=== PATIENT | female | born 2000 | race Two or more races ===

== ENCOUNTER 2022-12-10 15:35 | Outpatient (AMB) | payer MEDICARE, MEDICAID, SELFPAY ==
[2022-12-10 15:41] VITALS: BP 98/60; PULSE 84; O2SAT 99; BMI 19.6
--- NOTE | 2022-12-10 15:41 | MHC.PC.OV ---
Vital Signs 12/10/22 15:41 Height 5 ft 1 in Weight 104 lb BMI 19.6 BP 98/60 Blood Pressure Location Lt brachial Position Sitting Pulse 84 Pulse Source Pulse Oximeter Pulse Oximetry (%) 99 Oxygen Delivery Method Room Air Intake Visit Reasons: Med Follow up Pension Administrator Required: No Accompanied by: Self / Same As Patient Allergies bee pollen [BEE STINGS] Allergy (Severe, Verified 04/16/23 16:04) SWELLING latex Allergy (Severe, Verified 04/16/23 16:04) rash,hives NSAIDS (Non-Steroidal Anti-Inflamma [NSAIDS (NON-STEROIDAL ANTI-INFLAMMA] Adverse Reaction (Intermediate, Verified 04/16/23 16:04) NOSE BLEEDS R/T BLEEDING DISORDER Medication List - Last Reconciled 12/10/22 by Moncho Florence MD albuterol sulfate 90 mcg/actuation 2 puffs PO Q6H PRN citalopram 20 mg PO DAILY dextroamphetamine-amphetamine 20 mg ER (Adderall XR) 20 mg PO QAM 28 days epinephrine (EpiPen 2-Piotr) 0.3 mg (0.3 mL) IM Q10M PRN melatonin 3 mg PO BEDTIME PRN omeprazole 20 mg PO DAILY 90 days Tobacco use date assessed: 12/10/22 Dental Screening Dental Screen Date: 12/10/22 Did you have a dental visit in the last 12 months?: No Did you have a dental problem in the last 6 months where you did not have access to dental care?: No Was dental information given to patient?: No HPI Med Follow up HPI Details Patient comes in today for her follow up visit States that she has been feeling increasingly depressed lately; adds that her anxiety has also been increasing often recently despite her current medications She denies any headaches or dizziness Denies any chest pains, no shortness of breath - states that her asthma has been well-controlled lately No nausea/ vomiting, no abdominal pain No change in bowel habits noted [facility] Medical History History of palpitations Anxiety Insomnia Attention deficit hyperactivity disorder (ADHD) Allergic rhinitis GERD (gastroesophageal reflux disease) Asthma Surgical History Status post tooth extraction (~04/2019) Family History Father No problems noted. Mother Asthma High cholesterol Other Mental health problem Substance abuse Social History Housing: House Alcohol intake: never Patient Tobacco Use Status: Never used Tobacco e-Cigarette/Vaping Use: Never Used Second Hand Smoke Exposure: No service: No Current occupational status: unemployed Cognitive needs: No Hearing needs: No Vision needs: No Questionnaire PHQ-9 Over the last 2 weeks, how often have you been bothered by any of the following problems? 1. Little interest or pleasure in doing things: not at all 2. Feeling down, depressed, or hopeless: nearly every day 3. Trouble falling or staying asleep, or sleeping too much: nearly every day 4. Feeling tired or having little energy: not at all 5. Poor appetite or overeating: not at all 6. Feeling bad about yourself - or that you are a failure or have let yourself or your family down: not at all 7. Trouble concentrating on things, such as reading the newspaper or watching television: not at all 8. Moving or speaking so slowly that other people could have noticed. Or the opposite - being so fidgety or restless that you have been moving around a lot more than usual: not at all 9. Thoughts that you would be better off or of hurting yourself in some way: not at all Total score: 6 Depression Screening Interpretation: Positive Depression Screening Follow-up: Existing condition and In treatment 30495 - PHQ-9 Billing: Yes Source: Developed by Drs. Geovani Finney, Michelle Gonzalez, Farzad Lazar and colleagues, with an educational tawanna from [employer] Thrive Questionnaire Date Thrive assessed: 12/10/22 I am a: Patient What is your living situation today?: I have a steady place to live Within the past 12 months, did the food you bought not last and you didn't have the money to get more?: Never true Within the past 12 months, did you worry whether your food would run out before you got money to buy more?: Never true Do you have trouble paying for medicines?: No Do you have trouble getting transportation to medical appointments?: No Do you have trouble paying your heating and electricity bill?: No Do you have trouble taking care of your child, family member or friend?: No Do you have trouble with day-to-day activities such as bathing, preparing meals, shopping, managing finances, etc.?: No Are you currently unemployed and looking for a job?: No Are you interested in more education?: No Please select the resources that you would like help with: None Currently or been in a relationship where the following occur: no concerns reported AUDIT C Alcohol Use Questionnaire (AUDIT-C) 1. How often do you have a drink containing alcohol?: Never 3. How often do you have six or more drinks on one occasion?: Never Total Score: 0 Score Reviewed/Action Taken: Yes JERICHO-7 AMB Questionnaire JERICHO-7 Date JERICHO - 7 assessed: 12/10/22 Feeling nervous, anxious, or on edge: 3 = Nearly every day Not being able to stop or control worryin = Nearly every day Worrying too much about different things: 0 = Not at all Trouble relaxin = Not at all Being so restless that it is hard to sit still: 0 = Not at all Becoming easily annoyed or irritable: 0 = Not at all Feeling afraid as if something awful might happen: 0 = Not at all Total JERICHO-7 score (0-4 normal; 5-9 mild; 10-14 moderate; 15-21 severe): 6 Source: Developed by Drs. Geovani Finney, Michelle Gonzalez, Farzad Lazar and colleagues, with an educational tawanna from [employer] Review of Systems Const Denies chills, Denies fatigue, Denies fever(s) and Denies headache(s) ENT Denies dysphagia, Denies dizziness, Denies otalgia, Denies headache(s), Denies odynophagia, Denies sinus pain and Denies sore throat Card Denies chest pain, Denies palpitations and Denies dyspnea Resp Denies cough, Denies dyspnea and Denies wheezing GI Denies abdominal pain, Denies constipation, Denies dysphagia, Denies heartburn, Denies diarrhea, Denies nausea, Denies odynophagia and Denies vomiting Denies nocturia, Denies dysuria and Denies urinary urgency Musc Denies back pain and Denies arthralgias Skin/Breast Denies rash Neuro Denies dizziness and Denies headache(s) Psych Reports anxiety, Reports depression (increased lately) and Reports difficulty concentrating Endo Denies fatigue and Denies palpitations Aller/Immun Denies wheezing Physical exam (Primary Care) Vital Signs: Last Vital Signs Pulse 84 12/10/22 15:41 BP 98/60 12/10/22 15:41 Pulse Ox 99 12/10/22 15:41 Oxygen Delivery Method Room Air 12/10/22 15:41 BMI result Body Mass Index 19.6 Tobacco/Smoking Status: Tobacco use Status Tobacco use date assessed 12/10/22 12/10/22 15:48 Patient Tobacco Use Status Never used Tobacco 12/10/22 15:48 e-Cigarette/Vaping Use Never Used 12/10/22 15:48 PHQ-9: PHQ-9 Score PHQ-9: Total score 6 12/10/22 16:33 Depression Screening Interpretation: Positive Depression Screening Follow-up: Existing condition and In treatment Thrive Assessment: Date of Thrive Assessment Date Thrive assessed 12/10/22 12/10/22 15:48 Currently or been in a relationship where the following occur: no concerns reported Const General: no acute distress and alert HENMT Ears: TM's normal bilaterally and EAC's normal Throat: Yes posterior oropharynx normal and Yes tonsils normal (no TP congestion) Neck Neck: Yes no lymphadenopathy and Yes supple Resp Auscultation: clear to auscultation bilaterally, no rales and no wheezes Cardio Rate: regular rate Rhythm: regular rhythm Heart sounds: no murmurs GI Palpation (GI): Soft to palpation and nontender Auscultation: normal bowel sounds General: Yes no CVA tenderness Back/Spine/Pelvis Back: no CVA tenderness Thoracic/Lumbar Spine: No lumbar spinal tenderness Skin Rashes: no rashes Extrem General: Yes no clubbing, cyanosis or edema Assessment and Plan Assessment & Plan (1) Asthma: Code(s): J45.909 - Unspecified asthma, uncomplicated Qualifiers: Asthma severity: mild Asthma persistence: intermittent Asthma complication type: uncomplicated Qualified Code(s): J45.20 - Mild intermittent asthma, uncomplicated Plan: Stable; patient has not needed to use her inhaler often lately, at most just about 1 to 2 times a week Continue Albuterol HFA 2 inhalations QID PRN (2) GERD (gastroesophageal reflux disease): Code(s): K21.9 - Gastro-esophageal reflux disease without esophagitis Qualifiers: Esophagitis presence: without esophagitis Qualified Code(s): K21.9 - Gastro-esophageal reflux disease without esophagitis Plan: Dietary restrictions reinforced Continue OTC Prilosec 20 mg QD as needed Will send her for some labs BAMBI as she has not had any follow up labs done in a while now (3) Allergic rhinitis: Code(s): J30.9 - Allergic rhinitis, unspecified Qualifiers: Allergic rhinitis trigger: unspecified Allergic rhinitis seasonality: unspecified Qualified Code(s): J30.9 - Allergic rhinitis, unspecified Plan: Continue Cetirizine 10 mg QD PRN (4) Attention deficit hyperactivity disorder (ADHD): Code(s): F90.9 - Attention-deficit hyperactivity disorder, unspecified type Qualifiers: Attention deficit-hyperactivity disorder type: unspecified Qualified Code(s): F90.9 - Attention-deficit hyperactivity disorder, unspecified type Plan: Continue Adderall XR 20 mg Q AM (5) Insomnia: Code(s): G47.00 - Insomnia, unspecified Qualifiers: Insomnia type: unspecified Qualified Code(s): G47.00 - Insomnia, unspecified Plan: Sleep hygiene reinforced - takes OTC Melatonin Q HS PRN (6) Anxiety: Code(s): F41.9 - Anxiety disorder, unspecified Plan: Will increase her Citalopram to 30 mg QD Follow up with psychiatry as scheduled (7) Depression: Code(s): F32.A - Depression, unspecified Qualifiers: Depression Type: major depressive disorder Major depression recurrence: recurrent Active/Remission status: currently active Major depression episode severity: unspecified Qualified Code(s): F33.9 - Major depressive disorder, recurrent, unspecified Plan: Is currently on Citalopram and dose will be increased from 20 mg to 30 mg QD Follow up with psychiatry as scheduled Plan Follow up in 4 months Orders: Orders Complete Blood Count Auto Diff 12/10/22 I10 - Essential (primary) hypertension, J45.909 - Unspecified asthma, uncomplicated, K21.9 - Gastro-esophageal reflux disease without esophagitis, J30.9 - Allergic rhinitis, unspecified UA CC w/rflx Micro + Cult 12/10/22 R30.0 - Dysuria, J45.909 - Unspecified asthma, uncomplicated, K21.9 - Gastro-esophageal reflux disease without esophagitis, J30.9 - Allergic rhinitis, unspecified Comprehensive Met. Panel 12/10/22 J45.909 - Unspecified asthma, uncomplicated, K21.9 - Gastro-esophageal reflux disease without esophagitis, J30.9 - Allergic rhinitis, unspecified TSH reflex Free T4 12/10/22 E78.00 - Pure hypercholesterolemia, unspecified, J45.909 - Unspecified asthma, uncomplicated, K21.9 - Gastro-esophageal reflux disease without esophagitis, J30.9 - Allergic rhinitis, unspecified Vitamin D 25-OH Total 12/10/22 E55.9 - Vitamin D deficiency, unspecified, J45.909 - Unspecified asthma, uncomplicated, K21.9 - Gastro-esophageal reflux disease without esophagitis, J30.9 - Allergic rhinitis, unspecified Cholesterol 12/10/22 J45.909 - Unspecified asthma, uncomplicated, K21.9 - Gastro-esophageal reflux disease without esophagitis, J30.9 - Allergic rhinitis, unspecified Medications: New citalopram 30 mg PO DAILY 30 caps 2RF 30 days Coding Level of Care Code Est Pt Level 4 (52257) Diagnoses Mild intermittent asthma without complication J45.20 Asthma severity: mild Asthma persistence: intermittent Asthma complication type: uncomplicated Gastroesophageal reflux disease without esophagitis K21.9 Esophagitis presence: without esophagitis Allergic rhinitis, unspecified seasonality, unspecified trigger J30.9 Allergic rhinitis trigger: unspecified Allergic rhinitis seasonality: unspecified Attention deficit hyperactivity disorder (ADHD), unspecified ADHD type F90.9 Attention deficit-hyperactivity disorder type: unspecified Insomnia, unspecified type G47.00 Insomnia type: unspecified Anxiety F41.9 Episode of recurrent major depressive disorder, unspecified depression episode severity F33.9 Depression Type: major depressive disorder Major depression recurrence: recurrent Active/Remission status: currently active Major depression episode severity: unspecified
== END 2022-12-10 16:53 | disposition home or self-care (01) ==
PROVIDERS: Visit Provider Internal Medicine
DX: J45.20 Mild intermittent asthma, uncomplicated (principal); K21.9 Gastro-esophageal reflux disease without esophagitis; J30.9 Allergic rhinitis, unspecified; F33.9 Major depressive disorder, recurrent, unspecified; F90.9 Attention-deficit hyperactivity disorder, unspecified type; G47.00 Insomnia, unspecified; F41.9 Anxiety disorder, unspecified
CPT/HCPCS: 99214

== ENCOUNTER 2023-03-08 14:05 | Outpatient (AMB) | payer MEDICARE, MEDICAID, SELFPAY ==
[2023-03-08 14:30] VITALS: BP 102/70; PULSE 78; TEMP 37.4; O2SAT 99; BMI 19.3
--- NOTE | 2023-03-08 14:30 | AM.OFFWIN_ITS ---
Intake Vital Signs 03/08/23 14:30 Height 5 ft 1 in Weight 102 lb BMI 19.3 BP 102/70 Blood Pressure Location Lt brachial Position Sitting Pulse 78 Pulse Source Pulse Oximeter Temp 99.4 F Temp Source Temporal Artery Scan Pulse Oximetry (%) 99 Intake Visit Reasons: EP, cough, congestion, fatigue [phone] Intake Note: pt is here c/o cough, congestion, fatigue, vomitting Patient Tobacco Use Status: Never used Tobacco Allergies bee pollen [BEE STINGS] Allergy (Severe, Verified 03/08/23 14:31) SWELLING latex Allergy (Severe, Verified 03/08/23 14:31) rash,hives NSAIDS (Non-Steroidal Anti-Inflamma [NSAIDS (NON-STEROIDAL ANTI-INFLAMMA] Adverse Reaction (Intermediate, Verified 03/08/23 14:31) NOSE BLEEDS R/T BLEEDING DISORDER Do you need a note to return to daycare/school/sports/work: Yes HPI HPI Comments History of Present Illness Details This is a 22-year-old female who presents to the office today for sick visit. Patient has a history of asthma. Patient complaining of a productive cough and chest congestion x1 month, which has been worsening over the past several days. Patient states she is currently living with her aunt as her parents are homeless. She states that her aunt makes her do a lot of work outside when it is cold out. She denies any fevers or chills. She reports some mild shortness of breath and wheezing. [facility], LAT[facility] Medical History Allergic rhinitis Anxiety Asthma Attention deficit hyperactivity disorder (ADHD) GERD (gastroesophageal reflux disease) History of palpitations Insomnia Surgical History Status post tooth extraction (~04/2019) Family History Father No problems noted. Mother Asthma High cholesterol Other Mental health problem Substance abuse Social History Housing: House Alcohol intake: never Patient Tobacco Use Status: Never used Tobacco e-Cigarette/Vaping Use: Never Used Second Hand Smoke Exposure: No service: No Current occupational status: unemployed Cognitive needs: No Hearing needs: No Vision needs: No Review of Systems Const All systems reviewed & are unremarkable except as noted in HPI and below Reports no additional complaints Eyes Reports no additional complaints ENT Reports no additional complaints Card Reports no additional complaints Resp Reports no additional complaints GI Reports no additional complaints Reports no additional complaints Musc Reports no additional complaints Skin/Breast Reports system reviewed and no additional complaints, except as documented Neuro Reports no additional complaints Psych Reports no additional complaints Endo Reports no additional complaints Samir/Lymph Reports no additional complaints Aller/Immun Reports no additional complaints Physical Exam Const Other: Vital signs reviewed. Constitutional: Non-toxic appearing. No acute distress. Well-developed and well-nourished. HEENT: Normocephalic and atraumatic. Skin: Warm and dry. No rashes or lesions noted. Neck: Full and painless range of motion. No cervical lymphadenopathy. Cardio: Regular rate and rhythm. No murmurs, gallops, or rubs. No lower extremity edema. No JVD. Pulmonary: No respiratory distress. No accessory muscle usage. Frequent deep cough. Scattered expiratory wheezing. Gastrointestinal: Soft, nontender, and nondistended in all 4 quadrants. Normoactive bowel sounds in all 4 quadrants. Genitourinary: No CVA tenderness. Musculoskeletal: Normal range of motion in joints throughout the body. No deformity or other signs of injury. Neuro: Alert and oriented x4. Cranial nerves 2-12 grossly intact. No focal deficits appreciated. Psych: Normal mood and affect. Assessment & Plan Assessment & Plan (1) Mild intermittent acute asthmatic bronchitis with acute exacerbation: Code(s): J45.21 - Mild intermittent asthma with (acute) exacerbation Plan: This is a 22-year-old female with past medical history significant for asthma presents with for reactive cough, chest congestion, shortness of breath, and wheezing. Patient's vital signs are stable and she is maintaining oxygen saturations on room air. She has scattered expiratory wheezing as well as a frequent deep cough on physical examination. History and physical most consistent with an acute asthmatic bronchitis likely secondary to environmental factors .Patient likely has an acute asthma exacerbation in the setting of environmental factors and exposure to cold weather and seasonal changes. I recommend that the patient stay inside when the weather is cold to avoid further asthma exacerbations as she likely has reactive airways causing bronchospasm. Patient was given an albuterol nebulized treatment in the office with improvement in her symptoms. Chest x-ray was obtained to evaluate for evidence of pneumonia. Patient was sent home on p.o. prednisone 40 mg daily x5 days, p.o. azithromycin 500 mg today followed by 250 mg daily x4 days, and PO benzonatate 200 mg 3 times daily as needed for cough. Patient was instructed to follow-up here or proceed to the emergency room if she were to develop persistent/worsening symptoms such as worsening sputum production/purulence, fever/chills, worsening shortness of breath, or hemoptysis. Patient verbalizes her understanding and she is in agreement with the plan. Orders: Orders AMB Nebulizer Treatment Today J45.901 - Unspecified asthma with (acute) exacerbation XR chest 2V Today R05.9 - Cough, unspecified Medications: New albuterol sulfate 2.5 mg (3 mL) inhalation ONCE 3 mL 0RF J45.901 - Unspecified asthma with (acute) exacerbation azithromycin For 250 mg dose pack: take 500 mg today (day 1), then 250 mg for 4 days (days 2-5) PO 6 tabs 0RF prednisone 40 mg (2 x 20 mg) PO DAILY 10 tabs 0RF benzonatate 200 mg PO TID PRN 14 caps 0RF cough Coding Level of Care Code Est Pt Level 3 (35172) Diagnoses Mild intermittent acute asthmatic bronchitis with acute exacerbation J45.21
== END 2023-03-08 16:30 | disposition home or self-care (01) ==
PROVIDERS: PCP Internal Medicine; Visit Provider Physician Assistant Medical
DX: J45.21 Mild intermittent asthma with (acute) exacerbation (principal)
CPT/HCPCS: 99213

== ENCOUNTER 2023-03-08 15:18 | Outpatient (REF) | payer MEDICARE, MEDICAID, SELFPAY ==
--- NOTE | ~2023-03-08 | XR_ITS ---
EXAMINATION: XR CHEST CLINICAL INFORMATION: Cough. COMPARISON: None available. TECHNIQUE: 2 views of the chest were obtained. FINDINGS: The lungs are well expanded. No focal consolidation. No pleural effusion. Cardiac silhouette is within normal limits. XR/XR chest 2V IMPRESSION: No acute abnormality.
== END 2023-03-08 15:19 | disposition home or self-care (01) ==
LOC: HO.HMGCX 15:18
PROVIDERS: Visit Provider Physician Assistant Medical
DX: R05.9 Cough, unspecified (principal)
CPT/HCPCS: 71046

== ENCOUNTER 2023-04-16 14:49 | Outpatient (AMB) | payer MEDICARE, MEDICAID, SELFPAY ==
[2023-04-16 14:58] VITALS: BP 102/76; PULSE 84; O2SAT 96; BMI 20.6
--- NOTE | 2023-04-16 14:58 | A.OFFPC_ITS ---
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 Accompanied by: Self / Same As Patient Allergies bee pollen [BEE STINGS] Allergy (Severe, Verified 04/16/23 16:04) SWELLING latex Allergy (Severe, Verified 04/16/23 16:04) rash,hives NSAIDS (Non-Steroidal Anti-Inflamma [NSAIDS (NON-STEROIDAL ANTI-INFLAMMA] Adverse Reaction (Intermediate, Verified 04/16/23 16:04) NOSE BLEEDS R/T BLEEDING DISORDER Medication List - Last Reconciled 04/16/23 by Moncho Florence MD albuterol sulfate 90 mcg/actuation 2 puffs PO Q6H PRN citalopram 20 mg PO DAILY citalopram 10 mg PO DAILY dextroamphetamine-amphetamine 20 mg ER (Adderall XR) 20 mg PO QAM 28 days epinephrine (EpiPen 2-Piotr) 0.3 mg (0.3 mL) IM Q10M PRN melatonin 3 mg PO BEDTIME PRN [NEBULIZER with MEDIUM MASK and all related supplies As directed] omeprazole 20 mg PO DAILY 90 days Tobacco use date assessed: 12/10/22 Dental Screening Dental Screen Date: 04/16/23 Did you have a dental visit in the last 12 months?: No Did you have a dental problem in the last 6 months where you did not have access to dental care?: No Was dental information given to patient?: No HPI 4 month f/u HPI Details Patient comes in today for her follow up visit States that she feels okay Relates that she came down with a bout of bronchitis a few weeks ago but her symptoms have all since cleared up She presently denies any headaches or dizziness Denies any chest pains, no SOB No nausea/vomiting, no abdominal pain No change in bowel habits noted States that her mom would like for her to be checked for possible diabetes She still has not gotten her previously ordered labs done yet States that she is currently following up with a psychiatrist and her mood disorder has been doing well on Citalopram that she now takes at 30 mg (20 mg + 10 mg tablets) QD and that psychiatry is still not yet taking over her Adderall XR Rx - was reportedly told that she will need to be seen 1 or 2 more time before they will take over PFSH Medical History History of palpitations Anxiety Insomnia Attention deficit hyperactivity disorder (ADHD) Allergic rhinitis GERD (gastroesophageal reflux disease) Asthma Surgical History Status post tooth extraction (~04/2019) Family History Father No problems noted. Mother Asthma High cholesterol Other Mental health problem Substance abuse Social History Housing: House Alcohol intake: never Patient Tobacco Use Status: Never used Tobacco e-Cigarette/Vaping Use: Never Used Second Hand Smoke Exposure: No service: No Current occupational status: unemployed Cognitive needs: No Hearing needs: No Vision needs: No Questionnaire PHQ-9 Over the last 2 weeks, how often have you been bothered by any of the following problems? 1. Little interest or pleasure in doing things: not at all 2. Feeling down, depressed, or hopeless: nearly every day 3. Trouble falling or staying asleep, or sleeping too much: nearly every day 4. Feeling tired or having little energy: not at all 5. Poor appetite or overeating: not at all 6. Feeling bad about yourself - or that you are a failure or have let yourself or your family down: not at all 7. Trouble concentrating on things, such as reading the newspaper or watching television: not at all 8. Moving or speaking so slowly that other people could have noticed. Or the opposite - being so fidgety or restless that you have been moving around a lot more than usual: not at all 9. Thoughts that you would be better off or of hurting yourself in some way: not at all Total score: 6 Depression Screening Interpretation: Positive Depression Screening Follow-up: Existing condition and In treatment Depression Screening Done: Yes 45361 - PHQ-9 Billing: Yes Source: Developed by Drs. Geovani Finney, Michelle B.WFarzad Darling and colleagues, with an educational tawanna from [employer]. Thrive Questionnaire Date Thrive assessed: 04/16/23 I am a: Patient What is your living situation today?: I have a steady place to live Within the past 12 months, did the food you bought not last and you didn't have the money to get more?: Never true Within the past 12 months, did you worry whether your food would run out before you got money to buy more?: Never true Do you have trouble paying for medicines?: No Do you have trouble getting transportation to medical appointments?: No Do you have trouble paying your heating and electricity bill?: No Do you have trouble taking care of your child, family member or friend?: No Do you have trouble with day-to-day activities such as bathing, preparing meals, shopping, managing finances, etc.?: No Are you currently unemployed and looking for a job?: No Are you interested in more education?: No Please select the resources that you would like help with: None Currently or been in a relationship where the following occur: no concerns reported AUDIT C Alcohol Use Questionnaire (AUDIT-C) 1. How often do you have a drink containing alcohol?: Never 3. How often do you have six or more drinks on one occasion?: Never Total Score: 0 Score Reviewed/Action Taken: Yes JERICHO-7 AMB Questionnaire JERICHO-7 Date JERICHO - 7 assessed: 04/16/23 Feeling nervous, anxious, or on edge: 3 = Nearly every day Not being able to stop or control worryin = Nearly every day Worrying too much about different things: 0 = Not at all Trouble relaxin = Not at all Being so restless that it is hard to sit still: 0 = Not at all Becoming easily annoyed or irritable: 0 = Not at all Feeling afraid as if something awful might happen: 0 = Not at all Total JERICOH-7 score (0-4 normal; 5-9 mild; 10-14 moderate; 15-21 severe): 6 Source: Developed by Drs. Geovani Finney, Farzad Greco and colleagues, with an educational tawanna from [email or web address]. Review of Systems Const Denies chills, Denies fatigue, Denies fever(s) and Denies headache(s) ENT Denies dysphagia, Denies dizziness, Denies otalgia, Denies headache(s), Denies odynophagia, Denies sinus pain and Denies sore throat Card Denies chest pain, Denies palpitations and Denies dyspnea Resp Denies cough, Denies dyspnea and Denies wheezing GI Denies abdominal pain, Denies constipation, Denies dysphagia, Denies heartburn, Denies diarrhea, Denies nausea, Denies odynophagia and Denies vomiting Denies nocturia, Denies dysuria and Denies urinary urgency Musc Denies back pain and Denies arthralgias Skin/Breast Denies rash Neuro Denies dizziness and Denies headache(s) Psych Reports depression (increased lately) and Reports difficulty concentrating Endo Denies fatigue and Denies palpitations Aller/Immun Denies wheezing Physical exam (Primary Care) Vital Signs: Last Vital Signs Pulse 84 04/16/23 14:58 BP 102/76 04/16/23 14:58 Pulse Ox 96 04/16/23 14:58 Oxygen Delivery Method Room Air 04/16/23 14:58 BMI result Body Mass Index 20.6 Tobacco/Smoking Status: Tobacco use Status Tobacco use date assessed 12/10/22 04/16/23 14:59 Patient Tobacco Use Status Never used Tobacco 04/16/23 14:59 e-Cigarette/Vaping Use Never Used 04/16/23 14:59 PHQ-9: PHQ-9 Score PHQ-9: Total score 6 04/16/23 15:11 Depression Screening Interpretation: Positive Depression Screening Follow-up: Existing condition and In treatment Thrive Assessment: Date of Thrive Assessment Date Thrive assessed 04/16/23 04/16/23 14:59 Currently or been in a relationship where the following occur: no concerns reported Const General: no acute distress and alert HENMT Ears: TM's normal bilaterally and EAC's normal Throat: Yes posterior oropharynx normal and Yes tonsils normal (no TP con gestion) Neck Neck: Yes no lymphadenopathy and Yes supple Resp Auscultation: clear to auscultation bilaterally, no rales and no wheezes Cardio Rate: regular rate Rhythm: regular rhythm Heart sounds: no murmurs GI Palpation (GI): Soft to palpation and nontender Auscultation: normal bowel sounds General: Yes no CVA tenderness Back/Spine/Pelvis Back: no CVA tenderness Thoracic/Lumbar Spine: No lumbar spinal tenderness Skin Rashes: no rashes Extrem General: Yes no clubbing, cyanosis or edema Assessment and Plan Assessment & Plan (1) Asthma: Code(s): J45.909 - Unspecified asthma, uncomplicated Qualifiers: Asthma severity: mild Asthma persistence: intermittent Asthma complication type: uncomplicated Qualified Code(s): J45.20 - Mild intermittent asthma, uncomplicated Plan: Stable; patient states that she has not needed to use her inhaler often lately - at most just around 1 to 2 times a week Continue Albuterol HFA 2 inhalations QID PRN (2) GERD (gastroesophageal reflux disease): Code(s): K21.9 - Gastro-esophageal reflux disease without esophagitis Qualifiers: Esophagitis presence: without esophagitis Qualified Code(s): K21.9 - Gastro-esophageal reflux disease without esophagitis Plan: Dietary restrictions reinforced Continue OTC Prilosec 20 mg QD as needed She is advised to get her labs done BAMBI and this should also help answer her mother's question whether she should be concerned about diabetes or not (3) Allergic rhinitis: Code(s): J30.9 - Allergic rhinitis, unspecified Qualifiers: Allergic rhinitis trigger: unspecified Allergic rhinitis seasonality: unspecified Qualified Code(s): J30.9 - Allergic rhinitis, unspecified Plan: Continue Cetirizine 10 mg QD PRN (4) Attention deficit hyperactivity disorder (ADHD): Code(s): F90.9 - Attention-deficit hyperactivity disorder, unspecified type Qualifiers: Attention deficit-hyperactivity disorder type: unspecified Qualified Code(s): F90.9 - Attention-deficit hyperactivity disorder, unspecified type Plan: Continue Adderall XR 20 mg Q AM (5) Insomnia: Code(s): G47.00 - Insomnia, unspecified Qualifiers: Insomnia type: unspecified Qualified Code(s): G47.00 - Insomnia, un specified Plan: Sleep hygiene reinforced - takes OTC Melatonin Q HS PRN (6) Anxiety: Code(s): F41.9 - Anxiety disorder, unspecified Plan: Continue Citalopram 30 mg QD Follow up with psychiatry as scheduled Plan To return in 4 months for her next annual physical examination Coding Level of Care Code Est Pt Level 4 (64041) Diagnoses Mild intermittent asthma without complication J45.20 Asthma severity: mild Asthma persistence: intermittent Asthma complication type: uncomplicated Gastroesophageal reflux disease without esophagitis K21.9 Esophagitis presence: without esophagitis Allergic rhinitis, unspecified seasonality, unspecified trigger J30.9 Allergic rhinitis trigger: unspecified Allergic rhinitis seasonality: unspecified Attention deficit hyperactivity disorder (ADHD), unspecified ADHD type F90.9 Attention deficit-hyperactivity disorder type: unspecified Insomnia, unspecified type G47.00 Insomnia type: unspecified Anxiety F41.9
== END 2023-04-16 16:17 | disposition home or self-care (01) ==
PROVIDERS: PCP Internal Medicine; Visit Provider Internal Medicine
DX: J45.20 Mild intermittent asthma, uncomplicated (principal); K21.9 Gastro-esophageal reflux disease without esophagitis; J30.9 Allergic rhinitis, unspecified; F90.9 Attention-deficit hyperactivity disorder, unspecified type; G47.00 Insomnia, unspecified; F41.9 Anxiety disorder, unspecified
CPT/HCPCS: 99214

== ENCOUNTER 2023-05-10 14:25 | Outpatient (AMB) | payer MEDICARE, MEDICAID, SELFPAY ==
--- NOTE | 2023-05-10 14:28 | MHC.PC.OV ---
Vital Signs 05/10/23 14:30 Height 5 ft 1 in Weight 112 lb 6 oz BMI 21.2 BP 110/68 Blood Pressure Location Lt brachial Position Sitting Pulse 88 Pulse Source Pulse Oximeter Pulse Oximetry (%) 97 Oxygen Delivery Method Room Air Intake Visit Reasons: Med Follow up Intake Note: Patient is here to follow up on med review. 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: No Sap Crm Developer: Present Accompanied by: Parent Allergies bee pollen [BEE STINGS] Allergy (Severe, Verified 05/10/23 14:46) SWELLING latex Allergy (Severe, Verified 05/10/23 14:46) rash,hives NSAIDS (Non-Steroidal Anti-Inflamma [NSAIDS (NON-STEROIDAL ANTI-INFLAMMA] Adverse Reaction (Intermediate, Verified 05/10/23 14:46) NOSE BLEEDS R/T BLEEDING DISORDER Medication List - Last Reconciled 05/10/23 by Moncho Florence MD albuterol sulfate 90 mcg/actuation 2 puffs PO Q6H PRN cetirizine 10 mg PO DAILY PRN citalopram 20 mg PO DAILY citalopram 10 mg PO DAILY dextroamphetamine-amphetamine 20 mg ER (Adderall XR) 20 mg PO QAM 28 days epinephrine (EpiPen 2-Piotr) 0.3 mg (0.3 mL) IM Q10M PRN melatonin 3 mg PO BEDTIME PRN [NEBULIZER with MEDIUM MASK and all related supplies As directed] omeprazole 20 mg PO DAILY 90 days Tobacco use date assessed: 05/10/23 Dental Screening Dental Screen Date: 05/10/23 Did you have a dental visit in the last 12 months?: No Did you have a dental problem in the last 6 months where you did not have access to dental care?: No Was dental information given to patient?: No HPI Med Follow up HPI Details Patient comes in today for her follow up visit States that she feel okay She denies any headaches or dizziness Denies any chest pains, no SOB No nausea/vomiting, no abdominal pain No change in bowel habits noted Patient STILL has NOT YET gotten her non-fasting labs done despite repeat attempts and reminders for her to get them done BAMBI Adds that she needs her Albuterol inhaler Rx refilled again PFSH Medical History History of palpitations Anxiety Insomnia Attention deficit hyperactivity disorder (ADHD) Allergic rhinitis GERD (gastroesophageal reflux disease) Asthma Surgical History Status post tooth extraction (~04/2019) Family History Father No problems noted. Mother Asthma High cholesterol Other Mental health problem Substance abuse Social History Housing: House Alcohol intake: never Patient Tobacco Use Status: Never used Tobacco e-Cigarette/Vaping Use: Never Used Second Hand Smoke Exposure: No service: No Current occupational status: unemployed Cognitive needs: No Hearing needs: No Vision needs: No Questionnaire PHQ-9 Over the last 2 weeks, how often have you been bothered by any of the following problems? 1. Little interest or pleasure in doing things: nearly every day 2. Feeling down, depressed, or hopeless: nearly every day 3. Trouble falling or staying asleep, or sleeping too much: nearly every day 4. Feeling tired or having little energy: nearly every day 5. Poor appetite or overeating: nearly every day 6. Feeling bad about yourself - or that you are a failure or have let yourself or your family down: several days 7. Trouble concentrating on things, such as reading the newspaper or watching television: more than half the days 8. Moving or speaking so slowly that other people could have noticed. Or the opposite - being so fidgety or restless that you have been moving around a lot more than usual: not at all 9. Thoughts that you would be better off or of hurting yourself in some way: several days Total score: 19 Depression Screening Interpretation: Positive Depression Screening Follow-up: Existing condition and In treatment Depression Screening Done: Yes 71927 - PHQ-9 Billing: Yes Source: Developed by Drs. Geovani Finney, Michelle Gonzalez, Farzad Lazar and colleagues, with an educational tawanna from [email or web address]. Thrive Questionnaire Date Thrive assessed: 05/10/23 I am a: Patient What is your living situation today?: I have a steady place to live Within the past 12 months, did the food you bought not last and you didn't have the money to get more?: Never true Within the past 12 months, did you worry whether your food would run out before you got money to buy more?: Never true Do you have trouble paying for medicines?: No Do you have trouble getting transportation to medical appointments?: No Do you have trouble paying your heating and electricity bill?: No Do you have trouble taking care of your child, family member or friend?: No Do you have trouble with day-to-day activities such as bathing, preparing meals, shopping, managing finances, etc.?: No Are you currently unemployed and looking for a job?: No Are you interested in more education?: No Currently or been in a relationship where the following occur: no concerns reported THRIVE Score: 0 AUDIT C Alcohol Use Questionnaire (AUDIT-C) 1. How often do you have a drink containing alcohol?: Never Total Score: 0 Score Reviewed/Action Taken: Yes JERICHO-7 AMB Questionnaire JERICHO-7 Date JERICHO - 7 assessed: 05/10/23 Feeling nervous, anxious, or on edge: 3 = Nearly every day Not being able to stop or control worryin = Several days Worrying too much about different things: 1 = Several days Trouble relaxin = Nearly every day Being so restless that it is hard to sit still: 1 = Several days Becoming easily annoyed or irritable: 3 = Nearly every day Feeling afraid as if something awful might happen: 0 = Not at all Total JERICHO-7 score (0-4 normal; 5-9 mild; 10-14 moderate; 15-21 severe): 12 Source: Developed by Drs. Geovani Finney, Michelle Gonzalez, Farzad Lazar and colleagues, with an educational tawanna from [email or web address]. Review of Systems Const Denies chills, Denies fatigue, Denies fever(s) and Denies headache(s) ENT Denies dysphagia, Denies dizziness, Denies otalgia, Denies headache(s), Denies odynophagia and Denies sore throat Card Denies chest pain, Denies palpitations and Denies dyspnea Resp Denies cough, Denies dyspnea and Denies wheezing GI Denies abdominal pain, Denies constipation, Denies dysphagia, Denies heartburn, Denies diarrhea, Denies nausea, Denies odynophagia and Denies vomiting Denies nocturia, Denies dysuria and Denies urinary urgency Musc Denies back pain and Denies arthralgias Skin/Breast Denies rash Neuro Denies dizziness and Denies headache(s) Psych Reports depression and Reports difficulty concentrating Endo Denies fatigue and Denies palpitations Aller/Immun Denies wheezing Physical exam (Primary Care) Vital Signs: Last Vital Signs Pulse 88 05/10/23 14:30 BP 110/68 05/10/23 14:30 Pulse Ox 97 05/10/23 14:30 Oxygen Delivery Method Room Air 05/10/23 14:30 BMI result Body Mass Index 21.2 Tobacco/Smoking Status: Tobacco use Status Tobacco use date assessed 05/10/23 05/10/23 14:33 Patient Tobacco Use Status Never used Tobacco 05/10/23 14:33 e-Cigarette/Vaping Use Never Used 05/10/23 14:33 PHQ-9: PHQ-9 Score PHQ-9: Total score 05/10/23 14:39 Depression Screening Interpretation: Positive Depression Screening Follow-up: Existing condition and In treatment Thrive Assessment: Date of Thrive Assessment Date Thrive assessed 05/10/23 05/10/23 14:33 Currently or been in a relationship where the following occur: no concerns reported Const General: no acute distress and alert HENMT Ears: TM's normal bilaterally and EAC's normal Throat: Yes posterior oropharynx normal and Yes tonsils normal (no TP congestion) Neck Neck: Yes no lymphadenopathy and Yes supple Resp Auscultation: clear to auscultation bilaterally, no rales and no wheezes Cardio Rate: regular rate Rhythm: regular rhythm Heart sounds: no murmurs GI Palpation (GI): Soft to palpation and nontender Auscultation: normal bowel sounds General: Yes no CVA tenderness Back/Spine/Pelvis Back: no CVA tenderness Thoracic/Lumbar Spine: No lumbar spinal tenderness Skin Rashes: no rashes Extrem General: Yes no clubbing, cyanosis or edema Assessment and Plan Assessment & Plan (1) Asthma: Code(s): J45.909 - Unspecified asthma, uncomplicated Qualifiers: Asthma severity: mild Asthma persistence: intermittent Asthma complication type: uncomplicated Qualified Code(s): J45.20 - Mild intermittent asthma, uncomplicated Plan: Stable again lately Continue Albuterol HFA 2 inhalations QID PRN - Rx refilled (2) GERD (gastroesophageal reflux disease): Code(s): K21.9 - Gastro-esophageal reflux disease without esophagitis Qualifiers: Esophagitis presence: without esophagitis Qualified Code(s): K21.9 - Gastro-esophageal reflux disease without esophagitis Plan: Dietary restrictions reinforced Continue OTC Prilosec 20 mg QD as needed She is advised to get her labs done BAMBI as these are long overdue - orders are again printed out for patient and she states that she will try to get these done tomorrow (3) Allergic rhinitis: Code(s): J30.9 - Allergic rhinitis, unspecified Qualifiers: Allergic rhinitis trigger: unspecified Allergic rhinitis seasonality: unspecified Qualified Code(s): J30.9 - Allergic rhinitis, unspecified Plan: Continue Cetirizine 10 mg QD PRN (4) Attention deficit hyperactivity disorder (ADHD): Code(s): F90.9 - Attention-deficit hyperactivity disorder, unspecified type Qualifiers: Attention deficit-hyperactivity disorder type: unspecified Qualified Code(s): F90.9 - Attention-deficit hyperactivity disorder, unspecified type Plan: Continue Adderall XR 20 mg Q AM (5) Insomnia: Code(s): G47.00 - Insomnia, unspecified Qualifiers: Insomnia type: unspecified Qualified Code(s): G47.00 - Insomnia, unspecified Plan: Sleep hygiene reinforced - takes OTC Melatonin Q HS PRN (6) Anxiety: Code(s): F41.9 - Anxiety disorder, unspecified Plan: Continue Citalopram 30 mg QD Follow up with psychiatry as scheduled Plan To return as scheduled in July 2023 for her annual physical examination Medications: Refilled albuterol sulfate 90 mcg/actuation 2 puffs PO Q6H PRN 18 ea 3RF for wheezing J45.20 - Mild intermittent asthma, uncomplicated Coding Level of Care Code Est Pt Level 3 (76689) Diagnoses Mild intermittent asthma without complication J45.20 Asthma severity: mild Asthma persistence: intermittent Asthma complication type: uncomplicated Gastroesophageal reflux disease without esophagitis K21.9 Esophagitis presence: without esophagitis Allergic rhinitis, unspecified seasonality, unspecified trigger J30.9 Allergic rhinitis trigger: unspecified Allergic rhinitis seasonality: unspecified Attention deficit hyperactivity disorder (ADHD), unspecified ADHD type F90.9 Attention deficit-hyperactivity disorder type: unspecified Insomnia, unspecified type G47.00 Insomnia type: unspecified Anxiety F41.9
[2023-05-10 14:30] VITALS: BP 110/68; PULSE 88; O2SAT 97; BMI 21.2
== END 2023-05-10 15:01 | disposition home or self-care (01) ==
PROVIDERS: PCP Internal Medicine; Visit Provider Internal Medicine
DX: J45.20 Mild intermittent asthma, uncomplicated (principal); K21.9 Gastro-esophageal reflux disease without esophagitis; J30.9 Allergic rhinitis, unspecified; F90.9 Attention-deficit hyperactivity disorder, unspecified type; G47.00 Insomnia, unspecified; F41.9 Anxiety disorder, unspecified
CPT/HCPCS: 99213

== ENCOUNTER 2023-05-28 15:32 | Outpatient (REF) | payer MEDICARE, MEDICAID, SELFPAY ==
[2023-05-28 15:44] LABS: MANUAL DIFF FLAG NO
[2023-05-28 17:10] LABS: Basophils Absolute Auto 0.1 X10*3/uL (0.0-0.2); Basophils Percent Auto 1.2 % (0-2); Eosinophils Absolute Auto 0.2 X10*3/uL (0.0-0.4); Eosinophils Percent Auto 3.9 % (0-4); Hematocrit 45.3 % (37.0-47.0); Hemoglobin 15.2 g/dl (12.0-16.0); Imm Gran Abs Auto 0.02 X10*3/uL (0.00-0.03); Imm Gran Pct Auto 0.3 % (0.0-0.4); Lymphocytes Absolute Auto 2.2 X10*3/uL (1.2-4.9); Lymphocytes Percent Auto 37.7 % (20-40); Mean Corpuscular HGB Conc 33.6 g/dl (31.0-35.0); Mean Corpuscular Hemoglobin 30.3 pg (27.0-33.0); Mean Corpuscular Volume 90.4 fL (80.0-98.0); Mean Platelet Volume 10.6 fL (9.4-12.3); Monocytes Absolute Auto 0.5 X10*3/uL (0.1-1.2); Monocytes Percent Auto 8.7 % (2-11); Neutrophils Absolute Auto 2.8 x10*3/uL (2.0-8.3); Neutrophils Percent Auto 48.2 % (45-73); Platelet Count 364 X10*3/uL (160-400); Red Blood Count 5.01 X10*6/uL (4.20-5.50); Red Cell Distribution Width 12.5 % (11.0-16.0); White Blood Count 5.9 X10*3/uL (4.8-10.8)
[2023-05-28 17:38] LABS: Alanine Aminotransferase 11 U/L (0-31); Albumin Level 4.4 g/dL (3.5-5.0); Alkaline Phosphatase 74 U/L (39-117); Anion Gap 11 (12-20); Aspartate Amino Transferase 15 U/L (5-31); Bilirubin Total 0.6 mg/dL (0.0-1.0); Blood Urea Nitrogen 8 mg/dL (9-16); Calcium 9.7 mg/dL (8.4-10.2); Carbon Dioxide 29 mmol/L (22-29); Chloride 102 mmol/L (96-108); Cholesterol 162 mg/dL (<200); Estimated Glomerular Filt Rate > 60; Glucose Random 88 mg/dL (60-115); Potassium 3.3 mmol/L (3.3-5.1); Sodium 139 mmol/L (135-145); Total Protein 7.2 g/dL (6.5-8.0)
[2023-05-28 17:56] LABS: TSH reflex Free T4 1.75 uIU/mL (0.32-4.0); Vitamin D 25-OH Total 31.5 ng/mL (>30)
== END 2023-05-28 15:33 | disposition home or self-care (01) ==
LOC: HO.LAB 15:32
PROVIDERS: PCP Internal Medicine; Visit Provider Internal Medicine
DX: J45.909 Unspecified asthma, uncomplicated (principal); K21.9 Gastro-esophageal reflux disease without esophagitis; E78.00 Pure hypercholesterolemia, unspecified; E55.9 Vitamin D deficiency, unspecified
CPT/HCPCS: 36415; 80053; 82306; 82465; 84443; 85025

== ENCOUNTER 2023-05-29 15:54 | Outpatient (REF) | payer MEDICARE, MEDICAID, SELFPAY ==
[2023-05-29 17:34] LABS: Appearance Urine Turbid; Color Urine Yellow; Glucose Urine UA Negative (Negative); Leukocyte Esterase Urine Negative (Negative); Nitrite Urine Negative (Negative); PH >= 9.0 (5.0-9.0); Urine Blood Negative (Negative); Urine Ketones Negative (Negative); Urine Protein Trace mg/dL (Neg-Trace)
== END 2023-05-29 15:55 | disposition home or self-care (01) ==
LOC: HO.LAB 15:54
PROVIDERS: PCP Internal Medicine; Visit Provider Internal Medicine
DX: R30.0 Dysuria (principal); J45.909 Unspecified asthma, uncomplicated; K21.9 Gastro-esophageal reflux disease without esophagitis
CPT/HCPCS: 81003

== ENCOUNTER 2024-01-10 15:57 | Outpatient (AMB) | payer MEDICARE, MEDICAID, SELFPAY ==
[2024-01-10 16:32] VITALS: BP 122/62; PULSE 103; O2SAT 96; BMI 19.3
--- NOTE | 2024-01-10 16:34 | AM.OFFVISMDC ---
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 Required: No Accompanied by: Self / Same As Patient Allergies bee pollen [BEE STINGS] Allergy (Severe, Verified 01/10/24 16:59) SWELLING latex Allergy (Severe, Verified 01/10/24 16:59) rash,hives NSAIDS (Non-Steroidal Anti-Inflamma [NSAIDS (NON-STEROIDAL ANTI-INFLAMMA] Adverse Reaction (Intermediate, Verified 01/10/24 16:59) NOSE BLEEDS R/T BLEEDING DISORDER Medication List - Last Reconciled 01/10/24 by Moncho Florence MD albuterol sulfate 90 mcg/actuation 2 puffs PO Q6H PRN cetirizine 10 mg PO DAILY PRN citalopram 10 mg PO DAILY citalopram 20 mg PO DAILY dextroamphetamine-amphetamine 20 mg ER (Adderall XR) 20 mg PO QAM 28 days epinephrine (EpiPen 2-Piotr) 0.3 mg (0.3 mL) IM Q10M PRN melatonin 3 mg PO BEDTIME PRN [NEBULIZER with MEDIUM MASK and all related supplies As directed] omeprazole 20 mg PO DAILY 90 days Do you need a note to return to daycare/school/sports/work: No HPI AWV HPI Details Patient comes in today for her Medicare Annual Wellness Exam States that she currently feels okay but have a couple of potential concerns that she would like to bring uo Relates that she fainted/passed out briefly in her own living room about 2 weeks ago States that she later came to on her own and recalls feeling a lot better promptly when she got something to drink Recalls now that she did not eat that whole day so her symptoms then were likely due to hypoglycemia States that she has not had any recurrence of this since Adds that she has a lump under her chin that has been present there for a while now but notes that it feels painful to touch recently States that the lump has not really gotten any bigger than before She denies any recent sore throat or any acute issues in her mouth, teeth or gums lately She denies any fever; denies any headaches or dizziness Denies any chest pains, no increased SOB No nausea/vomiting, no abdominal pain No change in bowel habits noted She had her labs done earlier this year [place] of care was reviewed and updated today Patient has a healthcare proxy but we do not have it on file - have advised her to provide office with a copy BAMBI IPPE/AWV: c/o of Annual Wellness Visit, initial visit. Medical / Social History Reviewed Past Medical History Yes . [place] of Care / Care Team list updated Yes . Surgical/Hospitalization History Yes . Current Medications (including OTC and supplements) Yes . Family History Yes . Tobacco Control form Yes . AUDIT-C (Alcohol use) form Yes . Illicit drug use in Social History Yes . Current diagnosis of depression? No Appropriate PHQ2/PHQ9 completed Yes . Data entered by Digital Media Coordinator and reviewed by provider Home Safety Throw rugs? No Grab bars? No Raised toilet seats? No Working smoke detectors? Yes Working carbon monoxide detectors? Yes Data entered by Digital Media Coordinator and reviewed by provider Activities of Daily Living (ADLs) Difficulty bathing or showering? No Difficulty dressing? No Difficulty using the toilet? No Difficulty getting in and out of bed? No Difficulty walking? No Receives help from another person with any of the above tasks? No Instrumental Activities of Daily Living (IADLs) Uses the telephone without help Gets to places out of walking distance with help Goes shopping for groceries with help Prepares own meals with help Does own minor home maintenance with help Does own laundry with help Does own housework with help Manages own money with help Currently takes medications? Yes Takes medication without help End-of-Life Planning Discussed advance directive Yes Advance directive on file Discussed wishes expressed in advance directive agreed to following patient's wishes Fall Risk: Fall History Have you had any falls with injury in the past year? No . Have you had two or more falls in the past year? No . Fall Risk Assessment: No falls in the past year . HRA filled out by the patient, reviewed by Provider and scanned. [facility] Medical History History of palpitations Anxiety Insomnia Attention deficit hyperactivity disorder (ADHD) Allergic rhinitis GERD (gastroesophageal reflux disease) Asthma Surgical History Status post tooth extraction (~04/2019) Family History Father No problems noted. Mother Asthma High cholesterol Other Mental health problem Substance abuse Social History Housing: House Alcohol intake: never Patient Tobacco Use Status: Never used Tobacco e-Cigarette/Vaping Use: Never Used Second Hand Smoke Exposure: No service: No Current occupational status: unemployed Cognitive needs: No Hearing needs: No Vision needs: No Questionnaire Medicare Wellness Checkup What gender do you identify with?: female During the past 4 weeks, how much have you been bothered by emotional problems such as feeling anxious, depressed, irritable, sad or downhearted, and blue?: extremely During the past 4 weeks, has your physical & emotional health limited your social activities with family, friends, neighbors, or groups?: quite a bit During the past 4 weeks, how much bodily pain have you generally had?: moderate pain During the past 4 weeks, was someone available to help you if you needed & wanted help?: yes, as much as I wanted During the past 4 weeks, what was the hardest physical activity you could do for at least 2 minutes?: very light Can you get to places out of walking distance without help? (For eg., can you travel alone on buses, taxis or drive your car?): No Can you go shopping for groceries or clothes without someone's help?: No Can you prepare your own meals?: Yes (sometimes) Can you do your housework without help?: Yes (light house work) Because of any health problems, do you need the help of another person with your personal care needs such as eating, bathing, dressing or getting around the house?: No Can you handle your own money without help?: No During the past 4 weeks, how would you rate your health in general?: poor During the past 4 weeks how have things been going for you?: pretty bad Are you having difficulties driving your car?: not applicable, I don't use a car Do you always fasten your seat belt when you are in a car?: yes, usually During past 4 weeks, have you been bothered by the following: never: Problems using the telephone?, seldom: Teeth or denture problems?, sometimes: Falling or dizzy when standing up and Trouble eating well? and often: Tiredness or fatigue? Have you fallen 2 or more times in the past year?: Yes Are you afraid of falling?: No Are you a smoker?: no During the past 4 weeks, how many drinks of wine, beer, or other alcoholic beverages did you have?: no alcohol at all Do you exercise for about 20 minutes 3 or more times a week?: no, I usually do not exercise this much Have you been given information to help with the following?: no: Hazards in your house that might hurt you? and no: Keeping track of your medications? How often do you have trouble taking medicines the way you have been told to take them?: I always take medicine as prescribed How confident are you that you can control & manage most of your health problems?: somewhat confident What is your race?: Other Mini Mental State Exam (MMSE) Orientation What is the (year) (season) (date) (day) (month)?: year, season, date, day and month Where are we (state) (county) (town or city) (hospital) (floor)?: state, town or city, hospital/clinic and floor Score Score: 9 Activity of Daily Living Bathing - sponge bath, tub bath or shower: receives no assistance (gets in/out by self, if usual bathing means Dressing - getting clothes from closets & drawers, including inner/outer garments & fasteners.: gets clothes & gets completely dressed without help Toileting - going to the 'toilet room' for urine/bowel elimination & cleaning self/arranging clothes: goes to toilet room, cleans self, arranges clothes without help Transfer: moves in & out of bed and chair without help (may use support object) Continence: controls urination/bowel movements completely by self Feeding: feeds self without help Total Score: 0 Information obtained from: patient Using telephone: independent Traveling: needs assistance Shopping: needs assistance Preparing meals: needs assistance (sometimes) Housework: needs assistance (can do only very light housework) Taking medicine: independent Managing money: needs assistance (sometimes) PHQ-9 Over the last 2 weeks, how often have you been bothered by any of the following problems? 1. Little interest or pleasure in doing things: not at all 2. Feeling down, depressed, or hopeless: nearly every day 3. Trouble falling or staying asleep, or sleeping too much: nearly every day 4. Feeling tired or having little energy: nearly every day 5. Poor appetite or overeating: nearly every day 6. Feeling bad about yourself - or that you are a failure or have let yourself or your family down: several days 7. Trouble concentrating on things, such as reading the newspaper or watching television: not at all 8. Moving or speaking so slowly that other people could have noticed. Or the opposite - being so fidgety or restless that you have been moving around a lot more than usual: more than half the days 9. Thoughts that you would be better off or of hurting yourself in some way: several days Total score: 16 Depression Screening Interpretation: Positive Depression Screening Follow-up: Existing condition and In treatment Depression Screening Done: Yes 07508 - PHQ-9 Billing: Yes Source: Developed by Drs. Geovani Finney, Michelle Gonzalez, Farzad Lazar and colleagues, with an educational tawanna from [employer]. PHQ-2/PHQ-9 PHQ-2 Over the last 2 weeks, how often have you been bothered by any of the following problems? 1. Little interest or pleasure in doing things: not at all 2. Feeling down, depressed, or hopeless: nearly every day Total score: 3 If score is 3 or greater, continue 3. Trouble falling or staying asleep, or sleeping too much: nearly every day 4. Feeling tired or having little energy: nearly every day 5. Poor appetite or overeating: nearly every day 6. Feeling bad about yourself - or that you are a failure or have let yourself or your family down: several days 7. Trouble concentrating on things, such as reading the newspaper or watching television: not at all 8. Moving or speaking so slowly that other people could have noticed. Or the opposite - being so fidgety or restless that you have been moving around a lot more than usual: more than half the days 9. Thoughts that you would be better off or of hurting yourself in some way: several days Total score: 16 0-4 None-Minimal, 5-9 Mild, 10-14 Moderate, 15-19 Moderately Severe, 20-27 Severe Source: Developed by Drs. Geovani Finney, Michelle Gonzalez, Farzad Lazar and colleagues, with an educational tawanna from [employer]. Thrive Questionnaire Date Thrive assessed: 01/10/24 I am a: Patient What is your living situation today?: I have a steady place to live Within the past 12 months, did the food you bought not last and you didn't have the money to get more?: Never true Within the past 12 months, did you worry whether your food would run out before you got money to buy more?: Never true Do you have trouble paying for medicines?: No Do you have trouble getting transportation to medical appointments?: No Do you have trouble paying your heating and electricity bill?: No Do you have trouble taking care of your child, family member or friend?: No Do you have trouble with day-to-day activities such as bathing, preparing meals, shopping, managing finances, etc.?: No Are you currently unemployed and looking for a job?: Yes Are you interested in more education?: No Please select the resources that you would like help with: None Currently or been in a relationship where the following occur: No concerns reported THRIVE Score: 0 JERICHO-7 AMB Questionnaire JERICHO-7 Date JERICHO - 7 assessed: 01/10/24 Feeling nervous, anxious, or on edge: 3 = Nearly every day Not being able to stop or control worryin = Several days Worrying too much about different things: 1 = Several days Trouble relaxin = Nearly every day Being so restless that it is hard to sit still: 1 = Several days Becoming easily annoyed or irritable: 3 = Nearly every day Feeling afraid as if something awful might happen: 0 = Not at all Total JERICHO-7 score (0-4 normal; 5-9 mild; 10-14 moderate; 15-21 severe): 12 Source: Developed by Drs. Geovani Finney, Michelle Gonzalez, Farzad Lazar and colleagues, with an educational tawanna from [employer]. Review of Systems Const Denies chills, Denies fatigue, Denies fever(s) and Denies headache(s) ENT Denies dysphagia, Denies dizziness, Denies otalgia, Denies headache(s), Denies odynophagia and Denies sore throat Card Denies chest pain, Denies palpitations and Denies dyspnea Resp Denies cough, Denies dyspnea and Denies wheezing GI Denies abdominal pain, Denies constipation, Denies dysphagia, Denies heartburn, Denies diarrhea, Denies nausea, Denies odynophagia and Denies vomiting Denies nocturia, Denies dysuria and Denies urinary urgency Musc Denies back pain and Denies arthralgias Skin/Breast Details: (+) nodule under chin / over anterior neck - see HPI for details Denies rash Neuro Denies dizziness and Denies headache(s) Psych Reports depression and Reports difficulty concentrating Endo Denies fatigue and Denies palpitations Aller/Immun Denies wheezing Physical Exam Vital Signs: Last Vital Signs Pulse 103 H 01/10/24 16:32 BP 122/62 01/10/24 16:32 Pulse Ox 96 01/10/24 16:32 Oxygen Delivery Method Room Air 01/10/24 16:32 BMI result Body Mass Index 19.3 IPPE/AWV: Balance Romberg Yes . Tandem walk Yes . Walk and Turn Yes . Rise from sit to stand Yes . Vision Corrective lens No Vision screen pass Hearing Whisper test pass . Urinary incont. no. EKG Not clinically necessary. Const General: no acute distress and alert HEENT Ears: TM's normal bilaterally and EAC's normal Throat: Yes posterior oropharynx normal and Yes tonsils normal Neck Other: (+) palpable midline nodular lesion(s) over the submental area of the neck Neck: Yes supple Thyroid: Thyroid normal Resp Auscultation: clear to auscultation bilaterally, no crackles and no rales Cardio Rate: regular rate Rhythm: regular rhythm Heart sounds: no murmurs GI Palpation (GI): Soft to palpation and nontender Auscultation: normal bowel sounds General: Yes no CVA tenderness Back/Spine/Pelvis Back: no CVA tenderness Skin Rashes: no rashes Extrem General: Yes no clubbing, cyanosis or edema Results Reviewed Results Reviewed: Laboratory Tests 05/28/23 05/29/23 15:42 17:23 WBC 5.9 Hgb 15.2 Hct 45.3 Plt Count 364 Sodium 139 Potassium 3.3 Creatinine 0.79 Estimated GFR > 60 Random Glucose 88 Calcium 9.7 AST 15 ALT 11 Total Protein 7.2 Albumin 4.4 Cholesterol 162 25-OH Vitamin D Total 31.5 TSH 1.75 Urine pH >= 9.0 Ur Specific [place] 1.020 Urine Protein Trace Urine Glucose (UA) Negative Urine Blood Negative Urine Nitrite Negative Ur Leukocyte Esterase Negative Assessment & Plan Assessment & Plan (1) Medicare annual wellness visit, initial: Code(s): Z00.00 - Encounter for general adult medical examination without abnormal findings Plan: KAVITHA updated HRA form discussed and completed with patient; form will be scanned into patient's chart (2) Nodule of neck: Code(s): R22.1 - Localized swelling, mass and lump, neck Plan: Nodule(s) primarily over the midline submental area Will send patient for soft tissue US of the area for further evaluation (3) Asthma: Code(s): J45.909 - Unspecified asthma, uncomplicated Qualifiers: Asthma severity: mild Asthma persistence: intermittent Asthma complication type: uncomplicated Qualified Code(s): J45.20 - Mild intermittent asthma, uncomplicated Plan: Asthma appears stable - patient states that she hardly has to use her inhaler and at most, just 1 to 2 times a week Continue Albuterol HFA 2 inhalations Q 6 hours PRN (4) History of palpitations: Code(s): Z87.898 - Personal history of other specified conditions Plan: She has been seen and evaluated by pediatric cardiology last year and had echocardiogram done in the office due to an abnormal EKG (right axis deviation) - echocardiogram came back NORMAL with no valvular pathologies She was advised to just follow up with cardiology on an as-needed basis (5) GERD (gastroesophageal reflux disease): Code(s): K21.9 - Gastro-esophageal reflux disease without esophagitis Qualifiers: Esophagitis presence: without esophagitis Qualified Code(s): K21.9 - Gastro-esophageal reflux disease without esophagitis Plan: Dietary restrictions reinforced Continue Omeprazole 20 mg QD PRN (6) Allergic rhinitis: Code(s): J30.9 - Allergic rhinitis, unspecified Qualifiers: Allergic rhinitis trigger: unspecified Allergic rhinitis seasonality: unspecified Qualified Code(s): J30.9 - Allergic rhinitis, unspecified Plan: Continue taking Cetirizine 10 mg QD PRN (7) Attention deficit hyperactivity disorder (ADHD): Code(s): F90.9 - Attention-deficit hyperactivity disorder, unspecified type Qualifiers: Attention deficit-hyperactivity disorder type: unspecified Qualified Code(s): F90.9 - Attention-deficit hyperactivity disorder, unspecified type Plan: Continue Adderall XR 20 mg Q AM (8) Insomnia: Code(s): G47.00 - Insomnia, unspecified Qualifiers: Insomnia type: unspecified Qualified Code(s): G47.00 - Insomnia, unspecified Plan: Sleep hygiene reinforced Continue OTC Melatonin 3 mg Q HS PRN (9) Anxiety: Code(s): F41.9 - Anxiety disorder, unspecified Plan: Continue Citalopram 30 mg QD Follow up with psychiatry as scheduled Plan Follow up as scheduled in March 2024 Orders: Orders US soft tiss head and/or neck Today R22.1 - Localized swelling, mass and lump, neck Quality Reporting (2019) Depression/Bipolar (159/160/161/177) PHQ-9: Total score: 16 Coding Level of Care Code Medicare First (G0438) Est Pt Level 4 (11888) Diagnoses Medicare annual wellness visit, initial Z00.00 Nodule of neck R22.1 Mild intermittent asthma without complication J45.20 Asthma severity: mild Asthma persistence: intermittent Asthma complication type: uncomplicated History of palpitations Z87.898 Gastroesophageal reflux disease without esophagitis K21.9 Esophagitis presence: without esophagitis Allergic rhinitis, unspecified seasonality, unspecified trigger J30.9 Allergic rhinitis trigger: unspecified Allergic rhinitis seasonality: unspecified Attention deficit hyperactivity disorder (ADHD), unspecified ADHD type F90.9 Attention deficit-hyperactivity disorder type: unspecified Insomnia, unspecified type G47.00 Insomnia type: unspecified Anxiety F41.9
== END 2024-01-10 17:14 | disposition home or self-care (01) ==
PROVIDERS: PCP Internal Medicine; Visit Provider Internal Medicine
DX: Z00.00 Encounter for general adult medical examination without abnormal findings (principal); R22.1 Localized swelling, mass and lump, neck; J45.20 Mild intermittent asthma, uncomplicated; Z87.898 Personal history of other specified conditions; K21.9 Gastro-esophageal reflux disease without esophagitis; J30.9 Allergic rhinitis, unspecified; F90.9 Attention-deficit hyperactivity disorder, unspecified type; G47.00 Insomnia, unspecified; F41.9 Anxiety disorder, unspecified

== ENCOUNTER → 2024-01-10 15:57 | Outpatient (BNVA) | payer MEDICARE, MEDICAID, SELFPAY | PROVIDERS: PCP Internal Medicine; Visit Provider Internal Medicine | DX: Z00.01 Encounter for general adult medical examination with abnormal findings (principal); R22.1 Localized swelling, mass and lump, neck; J45.20 Mild intermittent asthma, uncomplicated; K21.9 Gastro-esophageal reflux disease without esophagitis; J30.9 Allergic rhinitis, unspecified; F90.9 Attention-deficit hyperactivity disorder, unspecified type; G47.00 Insomnia, unspecified; F41.9 Anxiety disorder, unspecified; Z87.898 Personal history of other specified conditions | CPT/HCPCS: 99212 ==

== ENCOUNTER 2024-02-26 06:57 | Outpatient (REF) | payer MEDICARE, MEDICAID, SELFPAY ==
--- NOTE | ~2024-02-26 | XR_ITS ---
EXAMINATION: XR FOOT, LEFT CLINICAL INFORMATION: Twisting injury. Pain COMPARISON: None available. TECHNIQUE: AP, lateral, and oblique views of the left foot. FINDINGS: This metatarsal intact. No fracture, dislocation or destructive process. XR/XR foot LT min 3V IMPRESSION: Negative Electronically signed by: Sb Donohue MD 02/26/2024 12:47 PM EST
--- NOTE | ~2024-02-26 | XR_ITS ---
EXAMINATION: XR ANKLE, LEFT CLINICAL INFORMATION: Twisting injury COMPARISON: None available. TECHNIQUE: AP, lateral, and mortise views of the left ankle. FINDINGS: The mortise is intact. No fracture, dislocation or destructive process. XR/XR ankle LT min 3V IMPRESSION: Negative Electronically signed by: Sb Donohue MD 02/26/2024 12:45 PM [facility]
== END 2024-02-26 06:58 | disposition home or self-care (01) ==
LOC: HO.XRAY 06:57
PROVIDERS: PCP Internal Medicine; Visit Provider Internal Medicine
DX: M79.672 Pain in left foot (principal); M25.572 Pain in left ankle and joints of left foot; Z91.81 History of falling
CPT/HCPCS: 73610; 73630

== ENCOUNTER 2024-04-24 15:01 | Outpatient (AMB) | payer MEDICARE, MEDICAID, SELFPAY ==
[2024-04-24 15:49] VITALS: BP 100/62; PULSE 110; O2SAT 97; BMI 21.0
--- NOTE | 2024-04-24 15:49 | A.OFFPC_ITS ---
Vital Signs 04/24/24 15:49 Height 5 ft 1 in Weight 111 lb 6 oz BMI 21.0 BP 100/62 Blood Pressure Location Lt brachial Position Sitting Pulse 110 H Pulse Source Pulse Oximeter Pulse Oximetry (%) 97 Oxygen Delivery Method Room Air Intake Visit Reasons: 3 month follow up MED review Websphere Architect Required: No Accompanied by: Self / Same As Patient Allergies bee pollen [BEE STINGS] Allergy (Severe, Verified 04/24/24 16:07) SWELLING latex Allergy (Severe, Verified 04/24/24 16:07) rash,hives NSAIDS (Non-Steroidal Anti-Inflamma [NSAIDS (NON-STEROIDAL ANTI-INFLAMMA] Adverse Reaction (Intermediate, Verified 04/24/24 16:07) NOSE BLEEDS R/T BLEEDING DISORDER Medication List - Last Reconciled 04/24/24 by Moncho Florence MD albuterol sulfate 90 mcg/actuation 2 puffs PO Q6H PRN cetirizine 10 mg PO DAILY PRN citalopram 20 mg PO DAILY citalopram 10 mg PO DAILY dextroamphetamine-amphetamine 20 mg ER (Adderall XR) 20 mg PO QAM 28 days epinephrine (EpiPen 2-Piotr) 0.3 mg (0.3 mL) IM Q10M PRN melatonin 3 mg PO BEDTIME PRN [NEBULIZER with MEDIUM MASK and all related supplies As directed] omeprazole 20 mg PO DAILY 90 days Tobacco use date assessed: 04/24/24 Dental Screening Dental Screen Date: 04/24/24 Did you have a dental visit in the last 12 months?: No Did you have a dental problem in the last 6 months where you did not have access to dental care?: No Was dental information given to patient?: No HPI 3 month follow up MED review HPI Details Patient comes in today for her follow up visit States that things did not work out with their most recent landlord and they are now back to living out of a local hotel room after they had to move out of their recent place of residence Patient believes that her previous landlord is running a puppy mill and states that she has reported her to the authorities for possible animal cruelty States that her current situation is contributing to her feeling more depressed and she is hoping that this will be resolved soon as her current living situation is not conducive to her being able to exercise regularly and staying active States that she feels okay otherwise She denies any headaches or dizziness Denies any chest pains, no increased shortness of breath - states that her asthma has been well controlled so far No nausea/vomiting, no abdominal pain No change in bowel habits noted [facility] Medical History History of palpitations Anxiety Insomnia Attention deficit hyperactivity disorder (ADHD) Allergic rhinitis GERD (gastroesophageal reflux disease) Asthma Surgical History Status post tooth extraction (~04/2019) Family History Father No problems noted. Mother Asthma High cholesterol Other Mental health problem Substance abuse Social History Housing: House Alcohol intake: never Patient Tobacco Use Status: Never used Tobacco e-Cigarette/Vaping Use: Never Used Second Hand Smoke Exposure: No service: No Current occupational status: unemployed Cognitive needs: No Hearing needs: No Vision needs: No Questionnaire PHQ-9 Over the last 2 weeks, how often have you been bothered by any of the following problems? 1. Little interest or pleasure in doing things: not at all 2. Feeling down, depressed, or hopeless: nearly every day 3. Trouble falling or staying asleep, or sleeping too much: nearly every day 4. Feeling tired or having little energy: nearly every day 5. Poor appetite or overeating: nearly every day 6. Feeling bad about yourself - or that you are a failure or have let yourself or your family down: several days 7. Trouble concentrating on things, such as reading the newspaper or watching television: not at all 8. Moving or speaking so slowly that other people could have noticed. Or the opposite - being so fidgety or restless that you have been moving around a lot more than usual: more than half the days 9. Thoughts that you would be better off or of hurting yourself in some way: several days Total score: 16 Depression Screening Interpretation: Positive Depression Screening Follow-up: Existing condition and In treatment Depression Screening Done: Yes 85855 - PHQ-9 Billing: Yes Source: Developed by Drs. Geovani Finney, Michelle Gonzalez, Farzad Lazar and colleagues, with an educational tawanna from [employer]. Thrive Questionnaire Date Thrive assessed: 04/24/24 I am a: Patient What is your living situation today?: I have a steady place to live Within the past 12 months, did the food you bought not last and you didn't have the money to get more?: Never true Within the past 12 months, did you worry whether your food would run out before you got money to buy more?: Never true Do you have trouble paying for medicines?: No Do you have trouble getting transportation to medical appointments?: No Do you have trouble paying your heating and electricity bill?: No Do you have trouble taking care of your child, family member or friend?: No Do you have trouble with day-to-day activities such as bathing, preparing meals, shopping, managing finances, etc.?: No Are you currently unemployed and looking for a job?: Yes Are you interested in more education?: No Please select the resources that you would like help with: None Currently or been in a relationship where the following occur: No concerns reported THRIVE Score: 0 AUDIT C Alcohol Use Questionnaire (AUDIT-C) 1. How often do you have a drink containing alcohol?: Never 3. How often do you have six or more drinks on one occasion?: Never Total Score: 0 Score Reviewed/Action Taken: Yes JERICHO-7 AMB Questionnaire JERICHO-7 Date JERICHO - 7 assessed: 04/24/24 Feeling nervous, anxious, or on edge: 3 = Nearly every day Not being able to stop or control worryin = Several days Worrying too much about different things: 1 = Several days Trouble relaxin = Nearly every day Being so restless that it is hard to sit still: 1 = Several days Becoming easily annoyed or irritable: 3 = Nearly every day Feeling afraid as if something awful might happen: 0 = Not at all Total JERICHO-7 score (0-4 normal; 5-9 mild; 10-14 moderate; 15-21 severe): 12 Source: Developed by Michelle Greer, Farzad Lazar and colleagues, with an educational tawanna from [employer]. Review of Systems Const Denies chills, Denies fatigue, Denies fever(s) and Denies headache(s) ENT Denies dysphagia, Denies dizziness, Denies otalgia, Denies headache(s), Denies neck pain, Denies odynophagia and Denies sore throat Card Denies chest pain, Denies palpitations and Denies dyspnea Resp Denies chest congestion, Denies cough, Denies dyspnea and Denies wheezing GI Denies abdominal pain, Denies constipation, Denies dysphagia, Denies heartburn, Denies diarrhea, Denies nausea, Denies odynophagia and Denies vomiting Denies nocturia, Denies dysuria and Denies urinary urgency Musc Denies back pain, Denies arthralgias and Denies neck pain Skin/Breast Denies rash Neuro Denies dizziness and Denies headache(s) Psych Reports depression and Reports difficulty concentrating Endo Denies fatigue and Denies palpitations Aller/Immun Denies wheezing Physical exam (Primary Care) Vital Signs: Last Vital Signs Pulse 110 H 04/24/24 15:49 BP 100/62 04/24/24 15:49 Pulse Ox 97 04/24/24 15:49 Oxygen Delivery Method Room Air 04/24/24 15:49 BMI result Body Mass Index 21.0 Tobacco/Smoking Status: Tobacco use Status Tobacco use date assessed 04/24/24 04/24/24 15:54 Patient Tobacco Use Status Never used Tobacco 04/24/24 15:54 e-Cigarette/Vaping Use Never Used 04/24/24 15:54 PHQ-9: PHQ-9 Score PHQ-9: Total score 16 04/24/24 16:09 Depression Screening Interpretation: Positive Depression Screening Follow-up: Existing condition and In treatment Thrive Assessment: Date of Thrive Assessment Date Thrive assessed 04/24/24 04/24/24 15:54 Currently or been in a relationship where the following occur: No concerns reported Const General: no acute distress and alert HENMT Ears: TM's normal bilaterally and EAC's normal Throat: Yes posterior oropharynx normal and Yes tonsils normal (no TP congestion) Neck Neck: Yes supple and No lymphadenopathy Thyroid: Thyroid normal Resp Auscultation: clear to auscultation bilaterally, no rales and no wheezes Cardio Rate: regular rate Rhythm: regular rhythm Heart sounds: no murmurs GI Palpation (GI): Soft to palpation and nontender Auscultation: normal bowel sounds General: Yes no CVA tenderness Back/Spine/Pelvis Back: no CVA tenderness Thoracic/Lumbar Spine: No lumbar spinal tenderness Skin Rashes: no rashes Extrem General: Yes no clubbing, cyanosis or edema Coding Level of Care Code Est Pt Level 4 (72795) Diagnoses Mild intermittent asthma without complication J45.20 Asthma severity: mild Asthma persistence: intermittent Asthma complication type: uncomplicated Gastroesophageal reflux disease without esophagitis K21.9 Esophagitis presence: without esophagitis History of palpitations Z87.898 Allergic rhinitis, unspecified seasonality, unspecified trigger J30.9 Allergic rhinitis trigger: unspecified Allergic rhinitis seasonality: unspecified Attention deficit hyperactivity disorder (ADHD), unspecified ADHD type F90.9 Attention deficit-hyperactivity disorder type: unspecified Insomnia, unspecified type G47.00 Insomnia type: unspecified Anxiety F41.9 Episode of recurrent major depressive disorder, unspecified depression episode severity F33.9 Depression Type: major depressive disorder Major depression recurrence: recurrent Active/Remission status: currently active Major depression episode severity: unspecified Additional Codes PHQ-9 - 88821 - PHQ-9 Billing: Yes ([id number]) Assessment & Plan Assessment & Plan (1) Asthma: Code(s): J45.909 - Unspecified asthma, uncomplicated Category: Medical Qualifiers: Asthma severity: mild Asthma persistence: intermittent Asthma complication type: uncomplicated Qualified Code(s): J45.20 - Mild intermittent asthma, uncomplicated Plan: Patient's asthma appears stable and she states that she hardly has to use her i nhaler for a while now Continue Albuterol HFA 2 inhalations Q 6 hours PRN (2) GERD (gastroesophageal reflux disease): Code(s): K21.9 - Gastro-esophageal reflux disease without esophagitis Category: Medical Qualifiers: Esophagitis presence: without esophagitis Qualified Code(s): K21.9 - Gastro-esophageal reflux disease without esophagitis Plan: Dietary restrictions reinforced Continue Omeprazole 20 mg QD PRN (3) History of palpitations: Code(s): Z87.898 - Personal history of other specified conditions Category: Medical Plan: This is most likely related to her anxiety She has been seen and evaluated by pediatric cardiology last year and had echocardiogram done in the office due to an abnormal EKG (right axis deviation) - echocardiogram came back NORMAL with no valvular pathologies She was advised to just follow up with cardiology on an as-needed basis She is advised that she has not had any labs done in almost a year now and should get some fasting labs done before her next appointment in 4 months (4) Allergic rhinitis: Code(s): J30.9 - Allergic rhinitis, unspecified Category: Medical Qualifiers: Allergic rhinitis trigger: unspecified Allergic rhinitis seasonality: unspecified Qualified Code(s): J30.9 - Allergic rhinitis, unspecified Plan: Continue Cetirizine 10 mg QD PRN (5) Attention deficit hyperactivity disorder (ADHD): Code(s): F90.9 - Attention-deficit hyperactivity disorder, unspecified type Category: Medical Qualifiers: Attention deficit-hyperactivity disorder type: unspecified Qualified Code(s): F90.9 - Attention-deficit hyperactivity disorder, unspecified type Plan: Continue Adderall XR 20 mg Q AM (6) Insomnia: Code(s): G47.00 - Insomnia, unspecified Category: Medical Qualifiers: Insomnia type: unspecified Qualified Code(s): G47.00 - Insomnia, unspecified Plan: Sleep hygiene reinforced Continue OTC Melatonin 3 mg Q HS PRN (7) Anxiety: Code(s): F41.9 - Anxiety disorder, unspecified Category: Medical Plan: Continue Citalopram 30 mg QD (8) Depression: Code(s): F32.A - Depression, unspecified Category: Medical Qualifiers: Depression Type: major depressive disorder Major depression recurrence: recurrent Active/Remission status: currently active Major depression episode severity: unspecified Qualified Code(s): F33.9 - Major depressive disorder, recurrent, unspecified Plan: Continue Citalopram 30 mg QD Follow up with psychiatry as scheduled Plan Follow up in 4 months Orders: Orders Complete Blood Count Auto Diff 4 Months D64.9 - Anemia, unspecified, K21.9 - Gastro-esophageal reflux disease without esophagitis Comprehensive Met. Panel 4 Months K21.9 - Gastro-esophageal reflux disease without esophagitis Vitamin D 25-OH Total 4 Months E55.9 - Vitamin D deficiency, unspecified, K21.9 - Gastro-esophageal reflux disease without esophagitis Cholesterol 4 Months K21.9 - Gastro-esophageal reflux disease without esophagitis, Z00.00 - Encounter for general adult medical examination without abnormal findings TSH reflex Free T4 4 Months E78.00 - Pure hypercholesterolemia, unspecified, K21.9 - Gastro-esophageal reflux disease without esophagitis UA CC w/rflx Micro + Cult 4 Months K21.9 - Gastro-esophageal reflux disease wi thout esophagitis, R30.0 - Dysuria
== END 2024-04-24 16:16 | disposition home or self-care (01) ==
PROVIDERS: PCP Internal Medicine; Visit Provider Internal Medicine
DX: J45.20 Mild intermittent asthma, uncomplicated (principal); F33.9 Major depressive disorder, recurrent, unspecified; K21.9 Gastro-esophageal reflux disease without esophagitis; Z87.898 Personal history of other specified conditions; J30.9 Allergic rhinitis, unspecified; F90.9 Attention-deficit hyperactivity disorder, unspecified type; G47.00 Insomnia, unspecified; F41.9 Anxiety disorder, unspecified

== ENCOUNTER → 2024-04-24 15:01 | Outpatient (BNVA) | payer MEDICARE, MEDICAID, SELFPAY | PROVIDERS: PCP Internal Medicine; Visit Provider Internal Medicine | DX: J45.20 Mild intermittent asthma, uncomplicated (principal); K21.9 Gastro-esophageal reflux disease without esophagitis; J30.9 Allergic rhinitis, unspecified; F90.9 Attention-deficit hyperactivity disorder, unspecified type; G47.00 Insomnia, unspecified; F41.9 Anxiety disorder, unspecified; F33.9 Major depressive disorder, recurrent, unspecified; Z87.898 Personal history of other specified conditions | CPT/HCPCS: 96127; 99212 ==

== ENCOUNTER 2024-06-11 15:11 | Outpatient (REF) | payer MEDICARE, MEDICAID, SELFPAY ==
--- OUTSIDE RECORDS SUMMARY | 2024-06-11 16:13 | XMS_ITS | Clinical Summary ---
Author Organization [employer] [facility] Address [address] [place] [address] [address] [place] [address] Care Team Providers Care Screedman Name Role Phone Unavailable Primary Care Provider Unavailabl e Allergies Active Allergy Reactions Criticality Noted Date Comments Latex Rash Low 11/22/2023 Lorazepam Unknown 11/22/2023 Pollen Extract 01/20/2018 Bee stings Medications No known medications Active Problems Problem Noted Date Diagnosed Date Dry eye syndrome of both eyes 11/22/2023 Von Willebrand disease 04/04/2016 Overview (11/22/2023): Last Assessment & Plan: Might be a mild case, results from [employer] Faculty Member pending Asthma 04/04/2016 Overview (11/22/2023): Last Assessment & Plan: Currently inactive Social History Tobacco Use Types Packs/Day Years Used Date Smoking Tobacco: Never Assessed Comments Unknown Sex and Gender Information Value Date Recorded Sex Assigned at Female 09/03/2023 9:03 AM EDT Legal Sex Female 8:38 PM EDT Gender Identity Female 09/03/2023 9:03 AM EDT Sexual Orientation Straight 09/03/2023 9: 03 AM EDT Last Filed Vital Signs Vital Sign Reading Time Taken Comments Blood Pressure 114/70 10/04/2021 12:00 PM EDT Pulse - - Temperature - - Respiratory Rate - - Oxygen Saturation - - Inhaled Oxygen Concentration - - Weight - - Height - - Body Mass Index - - Plan of Treatment Upcoming Encounters Date Type Department Care Team (Late st Contact Info) Description 11/23/2024 4:00 PM EDT Office Visit Rudy [facility] [address] [place] [address] Telma Bermudez, OD [address] [place] [address] Health Maintenance Due Date Last Done Comments Depression Screening 1998 HIV Screening 1998 SDOH Screening 1998 Alcohol/Substance Use Screening 2010 Tobacco Screening 2010 Family Planning (PISQ) 2013 Hepatitis C Screening 2016 Pneumococcal Vaccine: Pediatrics (0 to 5 Years) and At-Risk Patients (6 to 49) Years) (1 of 2 - PCV) 2017 08/29/2000, 02/08/2000 Pap Smear 2019 DTaP/Tdap/Td Vaccines (7 - Td or Tdap) 04/23/2021 04/23/2011, 12/24/2002, 11/09/1999, Additional history exists COVID-19 Vaccine ( season) 2023 Influenza Vaccine (#1) 2023 5, 05/17/2014, 01/21/2013, Additional history exists Zoster Vaccines (1 of 2) 2048 RSV Patients and Patients Aged 60 years or older (1 - 1-dose 75+ series) 2073 Hepatitis B Vaccines Completed 03/08/1999, 1998, 1998 HIB Vaccines Completed 11/09/1999, 11/20, 1998, Additional history exists IPV Vaccines Completed 12/24/2002, 05/24, 1998, Additional history exists HPV Vaccines Completed 05/05/2013, 11/20, 10/07/2012 Meningococcal Vaccine Completed 03/04/2015, 012 Hepatitis A Vaccines Aged Out No long er eligible based on patient's age to complete this topic RSV under 20 months Aged Out No longe r eligible based on patient's age to complete this topic Rotavirus Vaccines Aged Out No longer eligible based on patient's age to complete this topic Insurance [facility] STANDARD MEDICARE
--- OUTSIDE RECORDS SUMMARY | 2024-06-11 16:13 | XMS_ITS | Encounter Summary ---
Author Organization [employer] [facility] Address [address] [place] [address] [address] [place] [address] Care Team Providers Care Elevator Operator Freight Name Role Phone Unavailable Primary Care Provider Unavailabl e Encounter Details Date Type Department Care Team (Latest Contact Info) Description 02/12/2020 Abstract [facility]VERSION[facility] Dental, Provider, DDS Social History Tobacco Use Types Packs/Day Years Used Date Smoking Tobacco: Never Assessed Comments Unknown Sex and Gender Information Value Date Recorded Sex Assigned at Female 09/03/2023 9:03 AM EDT Legal Sex Female 8:38 PM EDT Gender Identity Female 09/03/2023 9:03 AM EDT Sexual Orientation Straight 09/03/2023 9: 03 AM EDT documented as of this encounter Plan of Treatment Upcoming Encounters Date Type Department Care Team (Late st Contact Info) Description 11/23/2024 4:00 PM EDT Office Visit Rudy [facility] [address] [place] [address] Telma Bermudez OD [address] [place] [address] documented as of this encounter Visit Diagnoses Not on filedocumented in this encounter
--- OUTSIDE RECORDS SUMMARY | 2024-06-11 16:13 | XMS_ITS | Encounter Summary ---
Author Organization [employer] [facility] Address [address] [place] [address] [address] [place] [address] Care Team Providers Care Building Construction Superintendent Name Role Phone Unavailable Primary Care Provider Unavailabl e Encounter Details Date Type Department Care Team (Latest Contact Info) Description 07/30/2018 Abstract [facility] CONVERSIONS Dental, Provider, DDS Social [...] 11/23/2024 4:00 PM EDT Office Visit Rudy [facility] [address] [place] [address] Telma Bermudez OD [address] [place] [address] documented as of this encounter Visit Diagnoses Not on filedocumented in this encounter
== END 2024-06-11 15:12 | disposition home or self-care (01) ==
LOC: HO.LAB 15:11
PROVIDERS: PCP Internal Medicine; Visit Provider Internal Medicine
DX: Z13.89 Encounter for screening for other disorder (principal)

== ENCOUNTER 2025-04-05 16:07 | Outpatient (AMB) | payer MEDICARE, MEDICAID, SELFPAY ==
[2025-04-05 16:10] VITALS: BP 106/70; PULSE 92; O2SAT 96; BMI 19.8
--- NOTE | 2025-04-05 16:10 | MHC.PC.OV ---
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 Accompanied by: Self / Same As Patient Allergies bee pollen (BEE STINGS) Allergy (Severe, Verified 04/05/25 16:38) SWELLING latex Allergy (Severe, Verified 04/05/25 16:38) rash,hives NSAIDS (Non-Steroidal Anti-Inflamma (NSAIDS (NON-STEROIDAL ANTI-INFLAMMA) Adverse Reaction (Intermediate, Verified 04/05/25 16:38) NOSE BLEEDS R/T BLEEDING DISORDER Medication List - Last Reconciled 04/05/25 by Moncho Florence MD albuterol sulfate 90 mcg/actuation 2 puffs PO Q6H PRN cetirizine 10 mg PO DAILY PRN citalopram 10 mg PO DAILY citalopram 20 mg PO DAILY dextroamphetamine-amphetamine 20 mg ER (Adderall XR) 20 mg PO QAM 28 days epinephrine (EpiPen 2-Piotr) 0.3 mg (0.3 mL) IM Q10M PRN melatonin 3 mg PO BEDTIME PRN [NEBULIZER with MEDIUM MASK and all related supplies As directed] omeprazole 20 mg PO DAILY 90 days Tobacco use date assessed: 04/05/25 Dental Screening Dental Screen Date: 04/05/25 HPI follow up HPI Details - The patient is a 24 year old female presenting for medication management for ADHD. 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 - She reports that pharmacies have told her they do not have the medication in stock and do not know when it will be available, despite online information suggesting the backorder should have ended. - She reports feeling off a little bit due to the lack of medication. - She reports a recent unintentional weight loss of 5-6 pounds and currently weighs 105 pounds. - Her diet includes a daily breakfast of toast and avocado, and she has been exercising more and is generally very active. - She otherwise denies any other acute complaints or symptoms [facility] Medical History History of palpitations Anxiety Insomnia Attention deficit hyperactivity disorder (ADHD) Allergic rhinitis GERD (gastroesophageal reflux disease) Asthma Surgical History Status post tooth extraction (~04/2019) Family History Father No problems noted. Mother Asthma High cholesterol Other Mental health problem Substance abuse Social History Housing: House Alcohol intake: never Patient Tobacco Use Status: Never used Tobacco e-Cigarette/Vaping Use: Never Used Second Hand Smoke Exposure: No service: No Current occupational status: unemployed Cognitive needs: No Hearing needs: No Vision needs: No Questionnaire PHQ-9 Over the last 2 weeks, how often have you been bothered by any of the following problems? 1. Little interest or pleasure in doing things: more than half the days 2. Feeling down, depressed, or hopeless: more than half the days 3. Trouble falling or staying asleep, or sleeping too much: more than half the days 4. Feeling tired or having little energy: more than half the days 5. Poor appetite or overeating: more than half the days 6. Feeling bad about yourself - or that you are a failure or have let yourself or your family down: more than half the days 7. Trouble concentrating on things, such as reading the newspaper or watching television: nearly every day 8. Moving or speaking so slowly that other people could have noticed. Or the opposite - being so fidgety or restless that you have been moving around a lot more than usual: not at all 9. Thoughts that you would be better off or of hurting yourself in some way: not at all Total score: 15 Depression Screening Interpretation: Positive Depression Screening Follow-up: Existing condition and In treatment Depression Screening Done: Yes 27844 - PHQ-9 Billing: Yes Source: Developed by Drs. Geovani Finney, Michelle Gonzalez, Farzad Lazar and colleagues, with an educational tawanna from [employer]. Thrive Questionnaire Date Thrive assessed: 04/24/24 I am a: Patient What is your living situation today?: I have a steady place to live Within the past 12 months, did the food you bought not last and you didn't have the money to get more?: I choose not to answer this question Within the past 12 months, did you worry whether your food would run out before you got money to buy more?: I choose not to answer this question Do you have trouble paying for medicines?: No Do you have trouble getting transportation to medical appointments?: No Do you have trouble paying your heating and electricity bill?: No Do you have trouble taking care of your child, family member or friend?: No Do you have trouble with day-to-day activities such as bathing, preparing meals, shopping, managing finances, etc.?: No Are you currently unemployed and looking for a job?: I choose not to answer this question Are you interested in more education?: I choose not to answer this question Please select the resources that you would like help with: None Currently or been in a relationship where the following occur: No concerns reported THRIVE Score: 0 AUDIT C Alcohol Use Questionnaire (AUDIT-C) 1. How often do you have a drink containing alcohol?: Never Total Score: 0 Score Reviewed/Action Taken: Yes JERICHO-7 AMB Questionnaire JERICHO-7 Date JERICHO - 7 assessed: 04/24/24 Feeling nervous, anxious, or on edge: 3 = Nearly every day Not being able to stop or control worryin = More than half the days Worrying too much about different things: 3 = Nearly every day Trouble relaxin = Nearly every day Being so restless that it is hard to sit still: 3 = Nearly every day Becoming easily annoyed or irritable: 3 = Nearly every day Feeling afraid as if something awful might happen: 0 = Not at all Total JERICHO-7 score (0-4 normal; 5-9 mild; 10-14 moderate; 15-21 severe): 17 Source: Developed by Drs. Geovani Finney, Michelle Gonzalez, Farzad Lazar and colleagues, with an educational tawanna from [employer]. Review of Systems Const Denies chills, Denies fatigue, Denies fever(s) and Denies headache(s) ENT Denies dysphagia, Denies dizziness, Denies otalgia, Denies headache(s), Denies neck pain, Denies odynophagia and Denies sore throat Card Denies chest pain, Denies palpitations and Denies dyspnea Resp Denies chest congestion, Denies cough, Denies dyspnea and Denies wheezing GI Denies abdominal pain, Denies constipation, Denies dysphagia, Denies heartburn, Denies diarrhea, Denies nausea, Denies odynophagia and Denies vomiting Denies difficulty voiding, Denies nocturia, Denies dysuria and Denies urinary urgency Musc Denies back pain, Denies arthralgias and Denies neck pain Skin/Breast Denies rash Neuro Denies dizziness and Denies headache(s) Psych Reports depression and Reports difficulty concentrating Endo Denies fatigue and Denies palpitations Aller/Immun Denies wheezing Physical exam (Primary Care) Vital Signs: Last Vital Signs Pulse 92 04/05/25 16:10 BP 106/70 04/05/25 16:10 Pulse Ox 96 04/05/25 16:10 Oxygen Delivery Method Room Air 04/05/25 16:10 BMI result Body Mass Index 19.8 Tobacco/Smoking Status: Tobacco use Status Tobacco use date assessed 04/05/25 04/05/25 16:14 Patient Tobacco Use Status Never used Tobacco 04/05/25 16:14 e-Cigarette/Vaping Use Never Used 04/05/25 16:14 PHQ-9: PHQ-9 Score PHQ-9: Total score 15 04/06/25 05:41 Depression Screening Interpretation: Positive Depression Screening Follow-up: Existing condition and In treatment Thrive Assessment: Date of Thrive Assessment Date Thrive assessed 04/24/24 04/05/25 16:14 Currently or been in a relationship where the following occur: No concerns reported Const General: no acute distress and alert HENMT Ears: TM's normal bilaterally and EAC's normal Throat: Yes posterior oropharynx normal and Yes tonsils normal (no TP congestion) Neck Neck: Yes supple and No lymphadenopathy Thyroid: Thyroid normal Resp Auscultation: clear to auscultation bilaterally, no rales and no wheezes Cardio Rate: regular rate Rhythm: regular rhythm Heart sounds: no murmurs GI Palpation (GI): Soft to palpation and nontender Auscultation: normal bowel sounds General: Yes no CVA tenderness Back/Spine/Pelvis Back: no CVA tenderness Thoracic/Lumbar Spine: No lumbar spinal tenderness Skin Rashes: no rashes Extrem General: Yes no clubbing, cyanosis or edema Coding Level of Care Code Est Pt Level 4 (86112) Diagnoses Attention deficit hyperactivity disorder (ADHD), unspecified ADHD type F90.9 Attention deficit-hyperactivity disorder type: unspecified Mild intermittent asthma without complication J45.20 Asthma complication type: uncomplicated Asthma persistence: intermittent Asthma severity: mild Gastroesophageal reflux disease without esophagitis K21.9 Esophagitis presence: without esophagitis History of palpitations Z87.898 Allergic rhinitis, unspecified seasonality, unspecified trigger J30.9 Allergic rhinitis seasonality: unspecified Allergic rhinitis trigger: unspecified Insomnia, unspecified type G47.00 Insomnia type: unspecified Anxiety F41.9 Episode of recurrent major depressive disorder, unspecified depression episode severity F33.9 Active/Remission status: currently active Depression Type: major depressive disorder Major depression episode severity: unspecified Major depression recurrence: recurrent Additional Codes PHQ-9 - 64996 - PHQ-9 Billing: Yes ([id number]) Assessment & Plan Assessment & Plan (1) Attention deficit hyperactivity disorder (ADHD): Code(s): F90.9 - Attention-deficit hyperactivity disorder, unspecified type Category: Medical Qualifiers: Attention deficit-hyperactivity disorder type: unspecified Qualified Code(s): F90.9 - Attention-deficit hyperactivity disorder, unspecified type Plan: She was on Adderall XR 20 mg Q AM in the past but has not been on Rx for months now due to unavailability of her Rx Will try switching her over for now to Adderall XR 10 mg BID until her original Rx is back in stock (2) Asthma: Code(s): J45.909 - Unspecified asthma, uncomplicated Category: Medical Qualifiers: Asthma complication type: uncomplicated Asthma persistence: intermittent Asthma severity: mild Qualified Code(s): J45.20 - Mild intermittent asthma, uncomplicated Plan: Controlled Continue Albuterol HFA 2 inhalations Q 6 hours PRN although patient states that she hardly has to use her inhaler in a while now (3) GERD (gastroesophageal reflux disease): Code(s): K21.9 - Gastro-esophageal reflux disease without esophagitis Category: Medical Qualifiers: Esophagitis presence: without esophagitis Qualified Code(s): K21.9 - Gastro-esophageal reflux disease without esophagitis Plan: Dietary restrictions reinforced Continue Omeprazole 20 mg QD PRN (4) History of palpitations: Code(s): Z87.898 - Personal history of other specified conditions Category: Medical Plan: This is most likely related to her anxiety She has been seen and evaluated by pediatric cardiology a couple of years ago and had echocardiogram done in the office due to an abnormal EKG (right axis deviation) - echocardiogram came back NORMAL with no valvular pathologies She was advised to just follow up with cardiology on an as-needed basis She is advised that she has not had any labs done in almost a year now and should get some fasting labs done before her next appointment (5) Allergic rhinitis: Code(s): J30.9 - Allergic rhinitis, unspecified Category: Medical Qualifiers: Allergic rhinitis seasonality: unspecified Allergic rhinitis trigger: unspecified Qualified Code(s): J30.9 - Allergic rhinitis, unspecified Plan: Continue Cetirizine 10 mg QD PRN (6) Insomnia: Code(s): G47.00 - Insomnia, unspecified Category: Medical Qualifiers: Insomnia type: unspecified Qualified Code(s): G47.00 - Insomnia, unspecified Plan: Sleep hygiene reinforced Continue OTC Melatonin 3 mg Q HS PRN (7) Anxiety: Code(s): F41.9 - Anxiety disorder, unspecified Category: Medical Plan: Continue Citalopram 20 mg QD (8) Depression: Code(s): F32.A - Depression, unspecified Category: Medical Qualifiers: Active/Remission status: currently active Depression Type: major depressive disorder Major depression episode severity: unspecified Major depression recurrence: recurrent Qualified Code(s): F33.9 - Major depressive disorder, recurrent, unspecified Plan: Continue Citalopram 20 mg QD Follow up with psychiatry as scheduled Plan Follow up in 3 months Orders: Orders Cholesterol 06/26/25 F90.9 - Attention-deficit hyperactivity disorder, unspecified type, Z00.00 - Encounter for general adult medical examination without abnormal findings, Z87.898 - Personal history of other specified conditions Complete Blood Count Auto Diff 06/26/25 D64.9 - Anemia, unspecified, F90.9 - Attention-deficit hyperactivity disorder, unspecified type, Z87.898 - Personal history of other specified conditions Comprehensive Met. Panel 06/26/25 F90.9 - Attention-deficit hyperactivity disorder, unspecified type, Z87.898 - Personal history of other specified conditions TSH reflex Free T4 06/26/25 E78.00 - Pure hypercholesterolemia, unspecified, F90.9 - Attention-deficit hyperactivity disorder, unspecified type, Z87.898 - Personal history of other specified conditions UA CC w/rflx Micro + Cult 06/26/25 F90.9 - Attention-deficit hyperactivity disorder, unspecified type, R30.0 - Dysuria, Z87.898 - Personal history of other specified conditions Vitamin D 25-OH Total 06/26/25 E55.9 - Vitamin D deficiency, unspecified, F90.9 - Attention-deficit hyperactivity disorder, unspecified type, Z87.898 - Personal history of other specified conditions Medications: New dextroamphetamine-amphetamine 10 mg ER (Adderall XR) Partial Fill upon patient request. 10 mg PO BID 56 caps 0RF 28 days F90.9 - Attention-deficit hyperactivity disorder, unspecified type
== END 2025-04-05 17:00 | disposition home or self-care (01) ==
LOC: HO.HMCH 16:08
PROVIDERS: PCP Internal Medicine; Visit Provider Internal Medicine
DX: F90.9 Attention-deficit hyperactivity disorder, unspecified type (principal); J45.20 Mild intermittent asthma, uncomplicated; K21.9 Gastro-esophageal reflux disease without esophagitis; Z87.898 Personal history of other specified conditions; J30.9 Allergic rhinitis, unspecified; G47.00 Insomnia, unspecified; F41.9 Anxiety disorder, unspecified; F33.9 Major depressive disorder, recurrent, unspecified

== ENCOUNTER → 2025-04-05 16:07 | Outpatient (BNVA) | payer MEDICARE, MEDICAID, SELFPAY | PROVIDERS: PCP Internal Medicine; Visit Provider Internal Medicine | DX: F90.9 Attention-deficit hyperactivity disorder, unspecified type (principal); F33.9 Major depressive disorder, recurrent, unspecified; F41.9 Anxiety disorder, unspecified; G47.00 Insomnia, unspecified; J30.9 Allergic rhinitis, unspecified; K21.9 Gastro-esophageal reflux disease without esophagitis; Z87.898 Personal history of other specified conditions; Z13.31 Encounter for screening for depression; Z79.899 Other long term (current) drug therapy | CPT/HCPCS: 96127; 99212 ==